=== PATIENT | male | born 1955 | race Caucasian/White ===

== ENCOUNTER 2016-05-11 14:41 | Emergency (ER) | payer OTHER, MEDICARE ==
[~2016-05-11] VITALS: Ht 180.3 cm; Wt 99.8 kg
[~2016-05-11 14:41] MED LIST: ALLOPURINOL300 M1 PO; ASPIRIN EC81 M1 PO; ATORVASTATIN CA40 MG PO; BENICAR40 M1 PO; ENALAPRIL10 MG PO; ENALAPRIL20 MG PO; FOLIC ACID1 M1 PO; INDOMETHACIN50 M1 PO; JANUMET 1000 MG1 TAB PO; JANUMET XR 10001 TE1 PO; LOPRESSOR50 MG PO; LOVAZA1 GM PO; OXYCONTIN40 M1 PO; PLAVIX 75MG TAB75 MG PO; RANEXA500 M1 PO; ROXICODONE30 M1 PO; TIZANIDINE HCL4 M1 PO; TRILIPIX135 M1 PO; ZETIA10 MG PO
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
[2016-05-11] MEDS ORDERED: CYANOCOBAL1000 MCG/2 IM (15:10)
[2016-05-11] MEDS ORDERED: AMLODIPINE BESYL5 M1 PO (15:11)
[2016-05-11 15:14] LABS: ABSOLUTE BASOPHIL COUNT 0 /CUMM (0.0-0.2); ABSOLUTE EOSINOPHIL COUNT 0.1 /CUMM (0.0-0.7); ABSOLUTE GRANULOCYTE CT 10.8 /CUMM (1.4-6.5); ABSOLUTE LYMPH COUNT 0.7 /CUMM (1.2-3.4); ABSOLUTE MONOCYTE COUNT 0.7 /CUMM (0.10-0.60); BASOPHIL % 0.2 % (0.0-2.0); EOSINOPHIL % 0.4 % (0-5); HEMATOCRIT 39.3 % (42-52); MEAN CORPUSCULAR HGB CONC 34.3 G/DL (33.0-37.0); MEAN CORPUSCULAR VOLUME 87.3 FL (80.0-94.0); MEAN PLATELET VOLUME 7.5 FL (7.4-10.4); PLATELET COUNT 368 /CUMM (130-400); RBC DISTRIBUTION WIDTH 13.3 % (11.5-14.5); WHITE BLOOD CELL COUNT 12.2 /CUMM (4.8-10.8)
--- NOTE | 2016-05-11 15:27 | RADIOLOGY REPORT ---
EXAMINATION: XR PORTABLE CHEST CLINICAL INFORMATION: Chest pain. COMPARISON: Multiple chest x-rays most recent prior dated 09/14/2014 TECHNIQUE: Portable AP view of the chest was obtained. FINDINGS: Status post median sternotomy and CABG. Mild cardiomegaly. Lungs are clear. Visualized bony thorax is intact. IMPRESSION: No acute pulmonary disease.
[2016-05-11 15:36] LABS: GRANULOCYTE % 88.3 % (42.2-75.2)
[2016-05-11 16:23] VITALS: BP 192/91
== END 2016-05-11 16:34 | disposition short-term general hospital (02) ==
LOC: ERH 14:41
PROVIDERS: Emergency Medicine
DX: R07.9 Chest pain, unspecified (principal); R94.31 Abnormal electrocardiogram [ECG] [EKG]; R77.8 Other specified abnormalities of plasma proteins; E11.9 Type 2 diabetes mellitus without complications; Z79.84 Long term (current) use of oral hypoglycemic drugs
CPT/HCPCS: 93005; 93010; 96374; 96375; 99291; J3490

== ENCOUNTER 2016-05-26 18:22 | Emergency (ER) | payer OTHER, MEDICARE ==
[~2016-05-26] VITALS: Ht 180.3 cm; Wt 98.0 kg
[~2016-05-26 18:22] MED LIST changes: +AMLODIPINE BESYL5 M1 PO; +CYANOCOBAL1000 MCG/2 IM
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
[2016-05-26 18:45] LABS: ABSOLUTE BASOPHIL COUNT 0.1 /CUMM (0.0-0.2); ABSOLUTE EOSINOPHIL COUNT 0 /CUMM (0.0-0.7); ABSOLUTE GRANULOCYTE CT 10.7 /CUMM (1.4-6.5); ABSOLUTE LYMPH COUNT 0.8 /CUMM (1.2-3.4); ABSOLUTE MONOCYTE COUNT 0.7 /CUMM (0.10-0.60); BASOPHIL % 0.8 % (0.0-2.0); EOSINOPHIL % 0.4 % (0-5); GRANULOCYTE % 86.5 % (42.2-75.2); HEMATOCRIT 33.4 % (42-52); MEAN CORPUSCULAR HGB 28.8 PG (27.0-31.0); MEAN CORPUSCULAR HGB CONC 33.1 G/DL (33.0-37.0); MEAN CORPUSCULAR VOLUME 87.1 FL (80.0-94.0); MEAN PLATELET VOLUME 7.6 FL (7.4-10.4); RBC DISTRIBUTION WIDTH 14.5 % (11.5-14.5); RED BLOOD CELL CT 3.84 /CUMM (4.70-6.10)
[2016-05-26 18:58] LABS: PT 19.6 SEC (9.4-12.5); PTT 36 SEC (25-37)
--- NOTE | 2016-05-26 19:01 | RADIOLOGY REPORT ---
EXAMINATION: XR PORTABLE CHEST CLINICAL INFORMATION: Chest pain. COMPARISON: Chest radiography 05/11/2016. TECHNIQUE: Portable AP view of the chest was obtained. FINDINGS: Sternotomy wires and mediastinal surgical clips redemonstrated. The lungs are well expanded. No new consolidation, overt pulmonary edema, pleural effusion, or pneumothorax. Interstitial markings have not significantly changed compared to prior exam. Mediastinal contours are unchanged. No acute osseous abnormalities. Right humeral anchoring screw. IMPRESSION: No acute pulmonary pathology demonstrated. No significant interval change compared to prior chest radiography 05/11/2016.
[2016-05-26] MEDS ORDERED: ELIQUIS5 M1 PO (19:12)
[2016-05-26] MEDS ORDERED: CARVEDILOL6.25 M1 PO (19:13)
[2016-05-26] MEDS ORDERED: EFFIENT10 M1 PO (19:13)
[2016-05-26] MEDS ORDERED: AMBIEN5 M1 PO (19:14)
[2016-05-26] MEDS ORDERED: SENNA LAXATIVE1 EACH PO (19:14)
[2016-05-26] MEDS ORDERED: LIPITOR80 M1 PO (19:15)
[2016-05-26 19:18] LABS: WHITE BLOOD CELL COUNT 12.4 /CUMM (4.8-10.8)
[2016-05-26] MEDS ORDERED: JANUMET 50-1,01 EACH PO (19:18)
[2016-05-26] MEDS ORDERED: FISH OIL 1,0001 EAC3 PO (19:18)
[2016-05-26 19:19] LABS: PLATELET COUNT 613 /CUMM (130-400)
[2016-05-26 19:30] VITALS: BP 180/103
== END 2016-05-26 19:53 | disposition short-term general hospital (02) ==
LOC: ERH 18:22
PROVIDERS: Emergency Medicine
DX: I24.9 Acute ischemic heart disease, unspecified (principal); I10 Essential (primary) hypertension
CPT/HCPCS: 93005; 93010; 96374; 96375; 99291

== ENCOUNTER 2016-06-18 10:19 | Emergency (ER) | payer OTHER, MEDICARE ==
[~2016-06-18] VITALS: Ht 180.3 cm; Wt 93.4 kg
[~2016-06-18 10:19] MED LIST changes: +AMBIEN5 M1 PO; +CARVEDILOL6.25 M1 PO; +EFFIENT10 M1 PO; +ELIQUIS5 M1 PO; +FISH OIL 1,0001 EAC3 PO; +JANUMET 50-1,01 EACH PO; +LIPITOR80 M1 PO; +SENNA LAXATIVE1 EACH PO
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
[2016-06-18 13:20] LABS: ABSOLUTE BASOPHIL COUNT 0.2 /CUMM (0.0-0.2); ABSOLUTE EOSINOPHIL COUNT 0.1 /CUMM (0.0-0.7); ABSOLUTE GRANULOCYTE CT 5.9 /CUMM (1.4-6.5); ABSOLUTE LYMPH COUNT 0.9 /CUMM (1.2-3.4); ABSOLUTE MONOCYTE COUNT 0.5 /CUMM (0.10-0.60); BASOPHIL % 2.1 % (0.0-2.0); EOSINOPHIL % 0.9 % (0-5); HEMATOCRIT 25.3 % (42-52); MEAN CORPUSCULAR HGB 28.2 PG (27.0-31.0); MEAN CORPUSCULAR HGB CONC 33.5 G/DL (33.0-37.0); MEAN CORPUSCULAR VOLUME 84.2 FL (80.0-94.0); MEAN PLATELET VOLUME 7.8 FL (7.4-10.4); PLATELET COUNT 280 /CUMM (130-400); RBC DISTRIBUTION WIDTH 15.9 % (11.5-14.5); RED BLOOD CELL CT 3.01 /CUMM (4.70-6.10); WHITE BLOOD CELL COUNT 7.4 /CUMM (4.8-10.8)
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
[2016-06-18] MEDS ORDERED: AMLODIPINE BESY10 M1 PO (15:27)
[2016-06-18] MEDS ORDERED: FAMOTIDINE20 M1 PO (15:27)
[2016-06-18] MEDS ORDERED: HEPARIN 101 UNIT/1 M AD (15:32)
[2016-06-18] MEDS ORDERED: HEPARIN AD (15:36)
[2016-06-18] MEDS ORDERED: POLYETHYLENE GL17 GM PO (15:38)
[2016-06-18] MEDS ORDERED: OXACILLIN2 GM/50 M1 IV (15:41)
[2016-06-18] MEDS ORDERED: SODIUM CHLORIDE50 M2 AD (15:43)
[2016-06-18] MEDS ORDERED: CARVEDILOL25 M1 PO (15:45)
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
[2016-06-18 18:36] VITALS: BP 123/59
--- NOTE | 2016-06-18 19:03 | RADIOLOGY REPORT ---
EXAMINATION: XR PORTABLE CHEST CLINICAL INFORMATION: 61-year-old male patient with shortness of breath. COMPARISON: Baseline exam done 09/14/2014. Most recent x-ray done 05/11/2016. TECHNIQUE: Portable AP portable semierect view of the chest was obtained. FINDINGS: The heart remains enlarged. Sternotomy wires are intact. This exam now shows early interstitial edema. Trace pleural effusions may be present. IMPRESSION: Cardiomegaly. Early interstitial edema with trace pleural effusion consistent with CHF.
--- NOTE | 2016-06-18 19:40 | ECHOCARDIOGRAM REPORT ---
DAYSI SILVERMAN Age: 61 : 1955 Gender: M Exam Date: 06/18/2016 17:09 Exam Location: ER Ht (in): 71 Wt (lb): 206 BSA: 2.18 BP: 108 / 63 Ordering Physician: MARSHALL MOSQUEDA, Referring Physician: Darrick Collazo MD Technologist: Bronwyn Bowen MILVIA Room Number: [id number] Indications: ARRHYTHMIAS Rhythm: Technical Quality: poor FINDINGS Left Ventricle Normal size left ventricle. Left ventricular wall thickness mildly increased. Normal left ventricular ejection fraction estimated at 55-60%. Posterior basal and basal septum appear hypokinetic and scarred. Right Ventricle Normal right ventricular size and function. Right Atrium Normal right atrial size. There is a thickened structure in the right AV groove seen in the subcostal view with contrast material contained within that appears to be an aneurysmal structure in and related to the right coronary artery. There is a similar looking structure in the apical view seemingly traversing the tricuspid valve which I believe is external to the right atrium and right ventricle . An abnormal pick line may be considered if it placed beyond the right atrium. Left Atrium Mild left atrial dilatation. Mitral Valve Structurally normal mitral valve. Moderate mitral regurgitation. Aortic Valve Aortic sclerosis. Trace aortic regurgitation. Tricuspid Valve Structurally normal tricuspid valve. Elty-hi-[id number] tricuspid regurgitation. Right ventricular systolic pressure estimated to be at upper limits of normal at 30 mmHg. Pulmonic Valve Pulmonic valve not well visualized, grossly normal. Pericardium In the subcostal view there is thickening and echogenic material inferior to the right ventricle Great Vessels Normal size aortic root. CONCLUSIONS Markedly abnormal Echo study. See above for details. 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 Normal overall left ventricular systolic function with segmental abnormality in the posterior basal and basal septal areas.Dedicated Cardiac MRI is suggested. Darrick Collazo M.D. (Electronically Signed) Final Date: 18 June 2016 19:39 MEASUREMENTS (Male / Female) Normal Values 2D ECHO LV Diastolic Diameter PLAX 5.3 cm 4.2 - 5.9 / 3.9 - 5.3 cm LV Systolic Diameter PLAX 3.9 cm 2.1 - 4.0 cm LV Fractional Shortening PLAX 26.4 % 25 - 46 % LV Ejection Fraction 2D Teich 51.3 % IVS Diastolic Thickness 1.3 cm LVPW Diastolic Thickness 1.3 cm LV Relative Wall Thickness 0.5 LVOT Diameter 2.0 cm Aortic Root Diameter 3.1 cm LA Systolic Diameter LX 5.4 cm 3.0 - 4.0 / 2.7 - 3.8 cm LA Volume 62.0 cm 18 - 58 / 22 - 52 cm Ascending Aorta Diameter 3.5 cm DOPPLER AV Peak Velocity 121.0 cm/s AV Peak Gradient 5.9 mmHg AV Mean Velocity 80.2 cm/s AV Mean Gradient 3.0 mmHg AV Velocity Time Integral 27.0 cm LVOT Peak Velocity 114.0 cm/s LVOT Peak Gradient 5.2 mmHg LVOT Mean Velocity 69.8 cm/s LVOT Mean Gradient 2.0 mmHg LVOT Velocity Time Integral 25.7 cm LVOT Stroke Volume 80.7 cm AV Area Cont Eq vti 3.0 cm AV Area Cont Eq pk 3.0 cm MV Peak Velocity 145.0 cm/s MV Peak Gradient 8.4 mmHg MV Mean Velocity 60.0 cm/s MV Mean Gradient 2.0 mmHg Mitral E Point Velocity 128.0 cm/s MV PHT Velocity 147.7 cm/s MV Deceleration [place] 559.2 cm/s MV Pressure Half Time 79.2 ms MV Area PHT 2.8 cm MV Deceleration Time 190.0 ms TR Peak Velocity 228.0 cm/s TR Peak Gradient 20.8 mmHg Right Atrial Pressure 10.0 mmHg Pulmonary Artery Systolic Pressu 30.8 mmHg Right Ventricular Systolic Press 30.8 mmHg PV Peak Velocity 105.0 cm/s PV Peak Gradient 4.4 mmHg PV Mean Velocity 69.9 cm/s PV Mean Gradient 2.0 mmHg PV Velocity Time Integral 27.3 cm LV E' Lateral Velocity 9.4 cm/s Mitral E to LV E' Lateral Ratio 13.7 LV E' Septal Velocity 4.5 cm/s Mitral E to LV E' Septal Ratio 28.6
== END 2016-06-18 20:01 | disposition short-term general hospital (02) ==
LOC: ERH 10:19
PROVIDERS: Emergency Medicine
DX: R00.1 Bradycardia, unspecified (principal); D64.9 Anemia, unspecified; R09.89 Other specified symptoms and signs involving the circulatory and respiratory systems; I95.9 Hypotension, unspecified; R53.1 Weakness; E11.9 Type 2 diabetes mellitus without complications
CPT/HCPCS: 87040; 93005; 93010; 96361; 96374; C8929; J1940; Q9957

== ENCOUNTER 2016-07-19 17:02 | Emergency (ER) | payer OTHER, MEDICARE ==
[~2016-07-19] VITALS: Ht 177.8 cm; Wt 91.2 kg
[~2016-07-19 17:02] MED LIST changes: +AMLODIPINE BESY10 M1 PO; +CARVEDILOL25 M1 PO; +FAMOTIDINE20 M1 PO; +HEPARIN 101 UNIT/1 M AD; +HEPARIN AD; +OXACILLIN2 GM/50 M1 IV; +POLYETHYLENE GL17 GM PO; +SODIUM CHLORIDE50 M2 AD
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
[2016-07-19 17:48] LABS: ABSOLUTE BASOPHIL COUNT 0 /CUMM (0.0-0.2); ABSOLUTE EOSINOPHIL COUNT 0.1 /CUMM (0.0-0.7); ABSOLUTE MONOCYTE COUNT 0.2 /CUMM (0.10-0.60); BASOPHIL % 0 % (0.0-2.0); EOSINOPHIL % 0.8 % (0-5); HEMATOCRIT 29.8 % (42-52); MEAN CORPUSCULAR HGB CONC 33.7 G/DL (33.0-37.0); MEAN CORPUSCULAR VOLUME 83.3 FL (80.0-94.0); PLATELET COUNT 623 /CUMM (130-400); RBC DISTRIBUTION WIDTH 15.7 % (11.5-14.5); RED BLOOD CELL CT 3.58 /CUMM (4.70-6.10); WHITE BLOOD CELL COUNT 11.3 /CUMM (4.8-10.8)
[2016-07-19 17:59] LABS: PT 14.2 SEC (9.4-12.5); PTT 26 SEC (25-37)
[2016-07-19 18:08] LABS: GRANULOCYTE % 88.7 % (42.2-75.2)
--- NOTE | 2016-07-19 18:17 | RADIOLOGY REPORT ---
EXAMINATION: XR PORTABLE CHEST CLINICAL INFORMATION: Shortness of breath. COMPARISON: Chest x-ray 06/18/2016 TECHNIQUE: Portable AP view of the chest was obtained. 5:45 PM FINDINGS: Lung volume low. This causes prominent/crowding of the bronchovascular markings. Status post median sternotomy. Pacemaker device over the left lung base. No focal consolidation. No large pleural effusion. Left-sided PICC line catheter tip projects over the aortic arch. Catheter tip projects over the left superior mediastinum. This catheter has been pulled back since prior chest x-ray when the catheter tip was at the cavoatrial junction. IMPRESSION: 1. Low lung volume which is causing prominent/crowding of the bronchovascular markings. No dense focal consolidation or large pleural effusion. 2. Left-sided PICC line catheter has been pulled back. Catheter tip now projecting over the aortic arch at the left superior mediastinum 3. Pacemaker device seen over the left chest.
[2016-07-19] MEDS ORDERED: CLOPIDOGREL75 M1 PO (18:42)
[2016-07-19] MEDS ORDERED: FENOFIBRATE160 M1 PO (18:43)
[2016-07-19] MEDS ORDERED: FERROUS SULFAT325 M3 PO (18:43)
[2016-07-19] MEDS ORDERED: OXYCODONE HCL5 M1 PO (18:44)
[2016-07-19] MEDS ORDERED: METOPROLOL SUCC25 M1 PO (18:44)
[2016-07-19 23:17] VITALS: BP 134/78
== END 2016-07-19 23:26 | disposition short-term general hospital (02) ==
LOC: ERH 17:02
PROVIDERS: Physician Assistant
DX: I21.4 Non-ST elevation (NSTEMI) myocardial infarction (principal); R79.89 Other specified abnormal findings of blood chemistry; I10 Essential (primary) hypertension; E11.9 Type 2 diabetes mellitus without complications; R06.02 Shortness of breath; R05 Cough
CPT/HCPCS: 1263; 93005; 93010; 96374; 96376; 99291; J3490

== ENCOUNTER 2017-08-04 12:23 | Inpatient (IN) | payer OTHER, MEDICARE ==
[~2017-08-04] VITALS: Ht 180.3 cm; Wt 87.6 kg
[~2017-08-04 12:23] MED LIST changes: +CLOPIDOGREL75 M1 PO; +FENOFIBRATE134 M1 PO; +FERROUS SULFAT325 M3 PO; +METOPROLOL SUCC25 M1 PO; +OXYCODONE HCL5 M1 PO
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
[2017-08-04] MEDS ORDERED: ENTRESTO 49 MG1 EACH PO (13:18)
[2017-08-04] MEDS ORDERED: LASIX40 M1 PO ×2 (13:20)
[2017-08-04] MEDS ORDERED: INDOMETHACIN50 M1 PO (13:22)
[2017-08-04] MEDS ORDERED: METOPROLOL SUCC50 M2 PO (13:23)
[2017-08-04] MEDS ORDERED: OXYCONTIN40 M1 PO (13:23)
[2017-08-04] MEDS ORDERED: OXYCODONE HCL30 M1 PO (13:24)
[2017-08-04] MEDS ORDERED: PRISTIQ ER25 MG PO (13:26)
[2017-08-04] MEDS ORDERED: AMOXICILLIN500 M2 PO (13:26)
[2017-08-04 13:36] LABS: ABSOLUTE BASOPHIL COUNT 0 /CUMM (0.0-0.2); ABSOLUTE EOSINOPHIL COUNT 0.1 /CUMM (0.0-0.7); ABSOLUTE GRANULOCYTE CT 5.3 /CUMM (1.4-6.5); ABSOLUTE LYMPH COUNT 0.8 /CUMM (1.2-3.4); ABSOLUTE MONOCYTE COUNT 0.4 /CUMM (0.10-0.60); BASOPHIL % 0.2 % (0.0-2.0); EOSINOPHIL % 2.2 % (0-5); GRANULOCYTE % 80.4 % (42.2-75.2); HEMATOCRIT 32.1 % (42-52); MEAN CORPUSCULAR HGB CONC 33.4 G/DL (33.0-37.0); MEAN CORPUSCULAR VOLUME 89.7 FL (80.0-94.0); PLATELET COUNT 233 /CUMM (130-400); RBC DISTRIBUTION WIDTH 16.8 % (11.5-14.5); RED BLOOD CELL CT 3.58 /CUMM (4.70-6.10); WHITE BLOOD CELL COUNT 6.6 /CUMM (4.8-10.8)
--- NOTE | 2017-08-04 13:36 | RADIOLOGY REPORT ---
EXAMINATION: XR PORTABLE CHEST CLINICAL INFORMATION: Shortness of breath. COMPARISON: Prior chest radiographs, most recently 08/01/2017. TECHNIQUE: Portable frontal view of the chest was obtained. FINDINGS: The heart, great vessels, pulmonary vasculature and mediastinum are stable. The heart size is at least top normal. There has been a prior coronary valvuloplasty. Pacemaker leads are unchanged. There is mild patchy airspace disease in the right base and left upper lobe. There are small bilateral pleural effusions, right greater than left. No pneumothorax is seen. There is no acute osseous abnormality. An orthopedic anchor is seen applied to the right humeral head. IMPRESSION: 1. There is mild patchy airspace disease in the right base and left upper lobe. 2. There are small bilateral pleural effusions.
[2017-08-04 13:44] LABS: PT 14.7 SEC (9.4-12.5)
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
[2017-08-04 16:24] VITALS: BP 136/100
--- NOTE | 2017-08-04 16:59 | Admission Certification ---
Admission Certification Certification Statement - As attending physician, I certify that at the time of - admission, based on clinical presentation, severity of - symptoms, need for further diagnostic testing and - therapeutic interventions, and risk of adverse outcomes - without in-hospital treatment, in my clinical assessment, - this patient requires an acute hospital stay for a minimum - of two nights or longer. I have also considered psychsocial - factors such as support system, advanced age, financial - issues, cognitive issues, and failed out-patient treatments, - past re-admission history, safety of patient, and lack of - compliance as applicable. Specific rationale supporting this admission is: Inpatient admission is required for management of his congestive heart failure
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
[2017-08-04 22:45] VITALS: BP 128/78
[2017-08-05 02:42] LABS: ABSOLUTE BASOPHIL COUNT 0 /CUMM (0.0-0.2); ABSOLUTE EOSINOPHIL COUNT 0.1 /CUMM (0.0-0.7); ABSOLUTE GRANULOCYTE CT 4.9 /CUMM (1.4-6.5); ABSOLUTE MONOCYTE COUNT 0.5 /CUMM (0.10-0.60); BASOPHIL % 0.4 % (0.0-2.0); EOSINOPHIL % 2.2 % (0-5); GRANULOCYTE % 74.6 % (42.2-75.2); HEMATOCRIT 33.1 % (42-52); MEAN CORPUSCULAR HGB 29.8 PG (27.0-31.0); MEAN CORPUSCULAR HGB CONC 33.2 G/DL (33.0-37.0); MEAN CORPUSCULAR VOLUME 89.8 FL (80.0-94.0); MEAN PLATELET VOLUME 9.9 FL (7.4-10.4); PLATELET COUNT 241 /CUMM (130-400); RED BLOOD CELL CT 3.68 /CUMM (4.70-6.10); WHITE BLOOD CELL COUNT 6.6 /CUMM (4.8-10.8)
[2017-08-05 06:53] VITALS: BP 122/78
--- NOTE | 2017-08-05 08:15 | PN- Housestaff ---
Ghada PERALES,Prateek 08/05/17 0815: Subjective Follow-up For: CHF exacerbation exertional dyspnea SOLA Tele-Events Since Last Visit: paced rhythm, HR 60, no events Subjective: dyspnea significantly improved, >3L diuresis on IV lasix, off oxygen, lower extremity edema improving Review of Systems Constitutional: Reports: see HPI. Objective Last 24 Hrs of Vital Signs/I&O Vital Signs Date Time Temp Pulse Resp B/P B/P Pulse O2 O2 Flow FiO2 Mean Ox Delivery Rate 08/05 1404 97.1 68 18 116/60 94 Room Air 08/05 0825 124/64 08/05 0653 97.5 61 20 122/78 98 Room Air 08/05 0000 Nasal 2.0L Cannula 08/04 2245 97.7 78 24 128/78 97 08/04 2035 Nasal 2.0L Cannula 08/04 1624 98.5 71 20 136/100 95 08/04 1617 97 Room Air Intake & Output 08/05 1600 08/05 0800 08/05 0000 Intake Total 420 150 100 Output Total 900 1350 1050 Balance -480 -1200 -950 Intake, IV 20 Intake, Oral 400 150 100 Output, Urine 900 1350 1050 Patient 89.386 kg Weight Weight Bed scale Measurement Method Physical Exam General Appearance: Alert, Oriented X3, Cooperative, No Acute Distress, on room air Cardiovascular: Regular Rate, Normal S1, Normal S2, No Murmurs, LCW pacer Lungs: diminished bibasilarly Abdomen: Normal Bowel Sounds, Soft, No Tenderness, No Masses Extremities: No Clubbing, No Cyanosis, Normal Pulses, 1+ bilateral lower extremity pitting edema Current Medications: Current Medications Sig/Zee Start time Last Medication Dose Route Stop Time Status Admin Acetaminophen 650 MG Q6P PRN 08/04 1545 AC PO Aspirin Buffered 81 MG QAM 08/05 09 AC 08/05 PO 0825 Atorvastatin Calcium 80 MG QPM 08/04 2099 AC 08/04 PO 2043 Clopidogrel Bisulfate 75 MG DAILY 08/05 899 AC 08/05 PO 0824 Famotidine 20 MG BID 08/04 2099 AC 08/05 PO 0825 Fenofibrate 145 MG DAILY 08/05 09 AC 08/05 PO 0824 Ferrous Sulfate 325 MG TID 08/04 2099 AC 08/05 PO 1302 Furosemide 40 MG 0800 & 1700 08/04 1700 AC 08/05 IV 0824 Furosemide 0 .STK-MED ONE 08/04 1605 DC IV Heparin Sodium 5,000 UNIT Q8 08/04 2200 AC 08/05 (Porcine) SC 1302 Magnesium Oxide 800 MG ONE ONE 08/05 0900 DC 08/05 PO 08/05 0901 0935 Melatonin 5 MG AT BEDTIME 08/04 2130 AC 08/04 PO 2120 Metoprolol Succinate 75 MG DAILY 08/05 0900 AC 08/05 PO 0825 Non-Formulary 0 SEE ADMIN CRITERIA 08/05 1545 UNVr Medication ANY Non-Formulary 0 SEE ADMIN CRITERIA 08/04 1545 DC Medication ANY Oxycodone HCl 40 MG Q12 08/04 2100 AC 08/05 PO 0829 Oxycodone HCl 30 MG Q4P PRN 08/04 1545 AC 08/05 PO 1133 Oxycodone HCl 40 MG Q12H 08/04 1545 DC PO Senna/Docusate Sodium 1 TAB QPM PRN 08/04 1545 AC 08/05 PO 0823 Last 24 Hrs of Lab/Adalberto Results Last 24 Hrs of Labs/Mics: Laboratory Tests 08/05/17 0210: Anion Gap 15, Estimated GFR 41 L, BUN/Creatinine Ratio 22.9, Magnesium 1.4 L, Troponin I 0.04, CBC w Diff NO MAN DIFF REQ, RBC 3.68 L, MCV 89.8, MCH 29.8, MCHC 33.2, RDW 17.0 H, MPV 9.9, Gran % 74.6, Lymphocytes % 15.9 L, Monocytes % 6.9, Eosinophils % 2.2, Basophils % 0.4, Absolute Granulocytes 4.9, Absolute Lymphocytes 1.0 L, Absolute Monocytes 0.5, Absolute Eosinophils 0.1, Absolute Basophils 0 08/04/171954: Troponin I 0.03 Assessment/Plan Assessment: 62 year old man with CAD s/p CABG with stents x 8, HTN, HLD, DM, HFrEF, h/o cardiac arrest, presented with significant exertional dyspnea and new continuous supplemental oxygen requirement. Acute decompensated congestive heart failure: HFrEF 2L supplemental oxygen requirement-SpO2 94% on 2L NC Given 40mg IV lasix in the ED, started 40mg iv bid on the floor >-3L fluid balance in 48 hours, now on room air and less dyspneic Strict I/O's, daily weights BNP elevated to 60,000, clinically hypervolemic Serial troponins negative for acute ischemic EKG changes Cardiology consulted Recent echocardiogram as an outpatient LVEF 30% Entresto on hold Creatinine improving on diuretics Chest x-ray patchy airspace disease and small bilateral pleural effusions Will need outpatient follow up at the CHF clinic Acute kidney injury: Creatinine 1.9 on presentation Previously normal baseline 2 months ago Possibly cardiorenal syndrome as renal function is improving with diuresis Continue diuretics for now Trend renal function Avoid nephrotoxic agents, no NSAIDs Nephrology consultation placed CAD status post CABG/multiple cardiac stents Continue aspirin, plavix, statin, and metoprolol Entresto held for SOLA DM: Accuchecks TIDAC/HS, sugars have been in 100s since admission Novolog sliding scale insulin, coverage starting blood sugar > 150 HTN: Continue beta yadiel HLD: Continue statin therapy Gout: Allopurinol and indomethacin held for SOLA Anxiety: Continue pristiq 25 mg po daily Heart healthy diet DVT ppx-heparin Full code Problem List: 1. Acute on chronic systolic CHF (congestive heart failure) 2. Dyspnea on exertion 3. Elevated brain natriuretic peptide (BNP) level Pain Ratin Pain Location: n/a Pain Goal: Pain 4 or less Pain Plan: prn Tomorrow's Labs & Rationales: Mathew Garcia MD 08/05/17 1036: Attending MD Review Statement Attending Statement Attending MD Statement: examined this patient, discuss w/resident/PA/COMMUNITY SERVICES OFFICER, agreed w/resident/PA/COMMUNITY SERVICES OFFICER, reviewed EMR data (avail) Attending Assessment/Plan: 62M PMH hypertension, coronary artery disease status post CABG, hyperlipidemia, gout, peripheral neuropathy, carpal tunnel and diabetes presenting with 3 days of shortness of breath, malaise, fatigue, and orthopnea. For several weeks his breathing has been slowly deteriorating, but it has worsened acutely in the past 3 days. He is unable to sleep in a bed and becomes SOB when lying flat. 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 He has no recent events such as chest pain, trauma, palpitations, or infection. He is improved today. He had had 2.4L of diuresis since yesterday. More energy , breathing better. 1. Acute on chronic systolic CHF 2. SOLA Plan - Continue on telemetry - Continue Lasix 40mg IV BID - I/O, daily weights - Follow cardiology recommendations - Continue home medications excluding Entresto - DVT PPx - Anticipated discharge tomorrow or Saturday pending clinical improvement. CHF clinic on discharge. Monitor creatinine, no further CBCs.
--- NOTE | 2017-08-05 11:31 | PN- Cardiology ---
Subjective Subjective: Patient continues to report shortness of breath although has noted progressive shortness of breath for some time. Denies any chest pain. Objective Vital Signs and I&Os Vital Signs Date Time Temp Pulse Resp B/P B/P Pulse O2 O2 Flow FiO2 Mean Ox Delivery Rate 08/05 0825 124/64 08/05 0653 97.5 61 20 122/78 98 Room Air 08/05 0000 Nasal 2.0L Cannula 08/04 2245 97.7 78 24 128/78 97 08/04 2035 Nasal 2.0L Cannula 08/04 1624 98.5 71 20 136/100 95 08/04 1617 97 Room Air 08/04 1529 98.2 67 18 155/85 97 Room Air 08/04 1227 97.4 78 20 134/86 96 Room Air Intake & Output 08/05 1600 08/05 0800 08/05 0000 08/04 1600 08/04 0000 Intake Total 150 100 0 Output Total 1350 1050 500 Balance -1200 -950 -500 Intake, Oral 150 100 0 Output, Urine 1350 1050 500 Patient 197 lb 200 lb Weight Weight Bed scale Reported by Patient Measurement Method Physical Exam: General: no apparent distress. Alert. Eyes: No obvious scleral icterus. HEENT: No jugular venous distention or abnormal jugular venous pulsations. Cardiovascular: Normal intensity S1/S2. Pacemaker noted Respiratory: Mildly decreased air entry at the bases Abdomen: Soft, nontender with no guarding or rebound tenderness. Musculoskeletal: No clubbing or cyanosis noted; 1+ lower extremity edema Skin: warm Lymph: No gross lymphadenopathy. Current Medications: Current Medications Sig/Zee Start time Last Medication Dose Route Stop Time Status Admin Acetaminophen 650 MG Q6P PRN 08/04 1545 AC PO Aspirin Buffered 81 MG QAM 08/05 09 AC 08/05 PO 08 Atorvastatin Calcium 80 MG QPM 08/04 2099 AC 08/04 PO 2043 Clopidogrel Bisulfate 75 MG DAILY 08/05 899 AC 08/05 PO 0824 Famotidine 20 MG BID 08/04 2099 AC 08/05 PO 0825 Fenofibrate 145 MG DAILY 08/05 09 AC 08/05 PO 0824 Ferrous Sulfate 325 MG TID 08/04 2099 AC 08/05 PO 0824 Furosemide 40 MG 0800 & 1700 08/04 1700 AC 08/05 IV 0824 Furosemide 0 .STK-MED ONE 08/04 1605 DC IV Furosemide 40 MG ONCE ONE 08/04 1400 DC 08/04 IV 08/04 1401 1602 Heparin Sodium 5,000 UNIT Q8 08/04 2200 AC 08/05 (Porcine) SC 0535 Magnesium Oxide 800 MG ONE ONE 08/05 0900 DC 08/05 PO 08/05 0901 0935 Melatonin 5 MG AT BEDTIME 08/04 2130 AC 08/04 PO 2120 Metoprolol Succinate 75 MG DAILY 08/05 09 AC 08/05 PO 0825 Non-Formulary 0 SEE ADMIN CRITERIA 08/04 1545 DC Medication ANY Oxycodone HCl 40 MG Q12 08/04 2100 AC 08/05 PO 0829 Oxycodone HCl 30 MG Q4P PRN 08/04 1545 AC 08/05 PO 0222 Oxycodone HCl 40 MG Q12H 08/04 1545 DC PO Senna/Docusate Sodium 1 TAB QPM PRN 08/04 1545 AC 08/05 PO 0823 Results Last 48 Hrs of Labs/Mics: Laboratory Tests 08/05/17 0210: Anion Gap 15, Estimated GFR 41 L, BUN/Creatinine Ratio 22.9, Magnesium 1.4 L, Troponin I 0.04, CBC w Diff NO MAN DIFF REQ, RBC 3.68 L, MCV 89.8, MCH 29.8, MCHC 33.2, RDW 17.0 H, MPV 9.9, Gran % 74.6, Lymphocytes % 15.9 L, Monocytes % 6.9, Eosinophils % 2.2, Basophils % 0.4, Absolute Granulocytes 4.9, Absolute Lymphocytes 1.0 L, Absolute Monocytes 0.5, Absolute Eosinophils 0.1, Absolute Basophils 0 08/04/17 1955: Troponin I 0.03 08/04/17 1353: Anion Gap 13, Estimated GFR 36 L, BUN/Creatinine Ratio 19.5, Glucose 101 H, Calcium 9.1, Total Bilirubin 0.9, AST 30, ALT 36, Alkaline Phosphatase 44, Troponin I 0.03, Rps-T-Kdlgshdoiey Pept 82698 H, Total Protein 6.9, Albumin 4.0 , Globulin 2.9, Albumin/Globulin Ratio 1.4 08/04/17 1315: PT 14.7 H, INR 1.34 H, CBC w Diff NO MAN DIFF REQ, RBC 3.58 L, MCV 89.7, MCH 30.0, MCHC 33.4, RDW 16.8 H, MPV 10.0, Gran % 80.4 H, Lymphocytes % 11.8 L, Monocytes % 5.4, Eosinophils % 2.2, Basophils % 0.2, Absolute Granulocytes 5.3, Absolute Lymphocytes 0.8 L, Absolute Monocytes 0.4, Absolute Eosinophils 0.1, Absolute Basophils 0 Recent Imaging Studies: Telemetry tracings were personally reviewed and showed paced rhythm Assessment/Plan Assessment/Plan 1. Acute on chronic systolic heart failure with recent outpatient echocardiogram showing ejection fraction of approximately 30% 2. 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 Acute renal insufficiency; ?cardiorenal 4. Peripheral vascular disease 5. Diabetes mellitus 6. Hypertension/hyperlipidemia Patient has a very complicated cardiac history as described above. His creatinine has improved slightly and as he is still short of breath would continue on the IV Lasix. Consider nephrology consultation as already recommended by Dr. Fernandez. Agree with holding his Entresto for now. The patient did have a recent echocardiogram in our office with ejection fraction of 30% which is grossly unchanged and repeat inpatient echocardiogram is not currently indicated. Lino Gar MD [facility] Continue telemetry? Yes
[2017-08-05 14:04] VITALS: BP 116/60
[2017-08-05 22:12] VITALS: BP 116/74
[2017-08-06 07:05] VITALS: BP 124/68
--- NOTE | 2017-08-06 07:18 | PN- Housestaff ---
See Addendum Subjective Follow-up For: CHF exacerbation dyspnea SOLA hypomagnesia Tele-Events Since Last Visit: paced no events Subjective: feeling much better, dyspnea is significantly improved, on room air Review of Systems Constitutional: Reports: see HPI. Objective Last 24 Hrs of Vital Signs/I&O Vital Signs Date Time Temp Pulse Resp B/P B/P Pulse O2 O2 Flow FiO2 Mean Ox Delivery Rate 08/06 0853 65 124/68 08/06 0705 97.5 65 12 124/68 96 Room Air 08/05 2212 97.6 62 16 116/74 98 08/05 1404 97.1 68 18 116/60 94 Room Air Intake & Output 08/06 1600 08/06 0800 08/06 0000 Intake Total 280 300 Output Total 1150 2700 Balance -870 -2400 Intake, Oral 280 300 Output, Urine 1150 2700 Patient 87.628 kg Weight Physical Exam General Appearance: Alert, Oriented X3, Cooperative, No Acute Distress Cardiovascular: Regular Rate, Normal S1, Normal S2, No Murmurs Lungs: Clear to Auscultation, diminished bibasilarly Abdomen: Normal Bowel Sounds, Soft, No Tenderness, No Masses Extremities: No Clubbing, No Cyanosis, Normal Pulses, 1+ lower extremity edema Current Medications: Current Medications Sig/Zee Start time Last Medication Dose Route Stop Time Status Admin Acetaminophen 650 MG Q6P PRN 08/04 1545 AC PO Aspirin Buffered 81 MG QAM 08/05 0900 AC 08/06 PO 0853 Atorvastatin Calcium 80 MG QPM 08/04 2099 AC 08/05 PO 2009 Clopidogrel Bisulfate 75 MG DAILY 08/05 0900 AC 08/06 PO 0853 Desvenlafaxine 25 MG 08/05 AC 08/05 Succinate PO 2010 Desvenlafaxine 25 MG DAILY 08/05 1545 DC Succinate PO Famotidine 20 MG BID 08/04 2099 AC 08/06 PO 0853 Fenofibrate 145 MG DAILY 08/05 0900 AC 08/06 PO 0853 Ferrous Sulfate 325 MG TID 08/04 2099 AC 08/06 PO 0853 Furosemide 40 MG 0800 & 1700 08/04 1700 AC 08/06 IV 0854 Heparin Sodium 5,000 UNIT Q8 08/04 2200 AC 08/06 (Porcine) SC 0627 Insulin Aspart 0 TIDAC 08/05 1700 AC 08/05 SC 1702 Magnesium Oxide 800 MG DAILY 08/06 0937 AC PO Magnesium Oxide 800 MG ONE ONE 08/06 0900 DC 08/06 PO 08/06 0901 0924 Magnesium Sulfate 1 GM Q2H 08/06 09 DC Dextrose/Water 100 ML IV 08/06 1259 Melatonin 5 MG AT BEDTIME 08/04 2130 AC 08/05 PO 2009 Metoprolol Succinate 75 MG DAILY 08/05 0900 AC 08/06 PO 0853 Oxycodone HCl 30 MG .STK-MED ONE 08/06 2007 DC PO 08/05 2009 Oxycodone HCl 30 MG .STK-MED ONE 08/05 1121 DC PO 08/05 1122 Oxycodone HCl 40 MG Q12 08/04 2100 AC 08/06 PO 0854 Oxycodone HCl 30 MG Q4P PRN 08/04 1545 AC 08/06 PO 0931 Senna/Docusate Sodium 1 TAB QPM PRN 08/04 1545 AC 08/05 PO 0823 Last 24 Hrs of Lab/Adalberto Results Last 24 Hrs of Labs/Mics: Laboratory Tests 08/06/17 0640: Anion Gap 13, Estimated GFR > 60, BUN/Creatinine Ratio 26.4 H, Magnesium 1.3 L Assessment/Plan Assessment: 62 year old man with CAD s/p CABG with stents x 8, HTN, HLD, DM, HFrEF, h/o cardiac arrest, presented with significant exertional dyspnea and new continuous supplemental oxygen requirement. Acute decompensated congestive heart failure: HFrEF 2L supplemental oxygen requirement-SpO2 94% on 2L NC Given 40mg IV lasix in the ED, started 40mg iv bid on the floor Now on room air and less dyspneic, with good diuresis Strict I/O's, daily weights BNP elevated to 60,000, clinically hypervolemic Serial troponins negative for acute ischemic EKG changes Cardiology consulted Recent echocardiogram as an outpatient LVEF 30% Entresto on hold Creatinine improving on diuretics Chest x-ray patchy airspace disease and small bilateral pleural effusions Outpatient follow up at the CHF clinic Hypomagnesia: Related to aggressive diuresis Repleted orally Check BEP, renal function, and magnesium 3 days after discharge Acute kidney injury: Creatinine 1.9 on presentation, improved to 1.1 today with IV diuretics Previously normal baseline 2 months ago Possibly cardiorenal syndrome as renal function is improving with diuresis Continue home regimen of lasix 40mg then 20mg daily on discharge Trend renal function Avoid nephrotoxic agents, no NSAIDs CAD status post CABG/multiple cardiac stents Continue aspirin, plavix, statin, and metoprolol Entresto resumed on discharge DM: Accuchecks TIDAC/HS, sugars have been in 100s since admission Novolog sliding scale insulin, coverage starting blood sugar > 150 HTN: Continue beta yadiel HLD: Continue statin therapy Gout: Allopurinol and indomethacin held for SOLA Anxiety: Continue pristiq 25 mg po daily Heart healthy diet DVT ppx-heparin Full code Stable for discharge today, follow up with cardiology and CHF wellness clinic Problem List: 1. Acute on chronic systolic CHF (congestive heart failure) 2. Dyspnea on exertion 3. Acute kidney injury 4. Hypomagnesemia Pain Ratin Pain Location: n/a Pain Goal: Pain 4 or less Pain Plan: prn Tomorrow's Labs & Rationales: none, discharge
--- NOTE | 2017-08-06 08:49 | Patient Discharge Instructions ---
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 Darrick Collazo. Please follow up at the CHF clinic. Acute Coronary Syndrome Inclusion Criteria At DC or during hospital stay patient has or had the following: ACS DIAGNOSIS No Discharge Core Measures Meds if any: Prescribed or Continued at Discharge Meds if any: NOT Prescribed or Continued at Discharge Congestive Heart Failure Inclusion Criteria At DC or during hospital stay patient has or had the following: CHF DIAGNOSIS Yes Discharge Core Measures Meds if any: Prescribed or Continued at Discharge LENI/ARB for EF <40% Yes Meds if any: NOT Prescribed or Continued at Discharge Cerebrovascular accident Inclusion Criteria At DC or during hospital stay patient has or had the following: CVA/TIA Diagnosis No Discharge Core Measures Meds if any: Prescribed or Continued at Discharge Meds if any: NOT Prescribed or Continued at Discharge Venous thromboembolism Inclusion Criteria VTE Diagnosis No VTE Type NONE VTE Confirmed by (Test) NONE Discharge Core Measures - Per Current guidelines, there needs to be overlap - treatment for the first 5 days of Warfarin therapy. - If discharged on Warfarin prior to 5 days of - overlap therapy, the patient will need to be - assessed for post discharge needs including - *Post discharge parental anticoagulation - *Warfarin and/or parental anticoagulation education - *Follow up date to check INR post discharge At least 5 days overlap therapy as Inpatient No Meds if any: Prescribed or Continued at Discharge Note: Overlap Therapy is Warfarin and Anticoagulant Meds if any: NOT Prescribed or Continued at Discharge
[2017-08-06 08:53] VITALS: BP 124/68
--- NOTE | 2017-08-06 09:36 | Discharge Summary ---
Visit Information Visit Dates Admission Date: 08/04/17 Discharge Date: 08/06/17 Hospital Course Course Attending Physician: Mathew Rivas MD Primary Care Physician: Maykel Medina MD Hospital Course: 62 year old man with CAD s/p CABG with stents x 8, HTN, HLD, DM, HFrEF, h/o cardiac arrest, presented with significant exertional dyspnea and increased supplemental oxygen requirement. The patient was previously on oxygen on an as needed basis but for three days prior to arrival had been using it continuously for progressive exertional dyspnea and orthopnea. He denied any chest pain and ruled out for myocardial ischemia with serial negative troponins. His symptoms, chest x-ray, and markedly elevated proBNP were all consistent with acute exacerbation of congestive heart failure. He also had an acute kidney injury with creatinine elevated to 1.9 on arrival with a previously normal basline. He was treated with IV furosemide for diuresis and his renal injury improved with diuretics consistent with cardiorenal syndrome. Cardiology was consulted and agreed with holding his Entresto for acute kidney injury. The patient did have a recent echocardiogram as an outpatient with left ventricular ejection fraction of 30%, grossly unchanged from prior and this was not repeated as an inpatient. He diuresed approximately 6L in two days with improvement of his creatinine to 1.1. He did have hypomagnesia as a result of aggressive diuresis and this was repleted orally. He was given a prescription to have his renal function and electrolytes including magnesium checked three days after discharge. His supplemental oxygen requirement improved with diuresis and he was ambulating comfortably on room air without dyspnea before discharge. He was discharged home on his previous dose of furosemide and instructed to continue Entresto on discharge. He was instructed to follow up with cardiology and given an appointment at the CHF Wellness clinic and advised to limit his sodium intake. All his other home medications were continued, except NSAIDs, and he should follow up with his primary care physician. Allergies: Coded Allergies: NO KNOWN ALLERGIES (01/21/12) Disposition Summary Disposition Principal Diagnosis: Acute exacerbation of congestive heart failure HFrEF Acute kidney injury Cardiorenal sydrome Hypomagnesia Coronary artery disease s/p CABG and PCI with complications Additional Diagnosis: Complete heart block s/p permanent pacemaker (epicardial) History of pseudoaneurysm repair/mitral valve repair/PFO closure CAD HFrEF Peripheral vascular disease Hypertension Hyperlipidemia Diabetes mellitus Discharge Disposition: home health services Discharge Instructions General Discharge Information Code Status: Full Code Patient's Diet: Diabetic diet with two gram sodium restriction Patient's Activity: As tolerated Follow-Up Instructions/Appts: Please follow up with your primary care physician and clinical registered nurse. Have your blood work to check kidney function and electrolytes including magnesium in three days after discharge. Medications at Discharge Discharge Medications: Stop taking the following medications: Indomethacin (Indomethacin) 50 MG CAPSULE ORAL TWICE DAILY as needed for PAIN/ INFLAMMATION Continue taking these medications: Aspirin (Ecotrin*) 81 MG TABLET.DR 1 Tablet ORAL Every Morning Comments: Last Taken:08/06/17 Time:0900 Allopurinol (Allopurinol) 300 MG TABLET 1 Tablet ORAL Every Morning Comments: Last Taken:08/06/17 Time:0900 Cyanocobalamin (Vitamin B-12) (Cyanocobalamin Injection) 1,000 MCG/ML VIAL 1 Milliliters INTRAMUSC ONCE A MONTH Qty = 2 Sennosides/Docusate Sodium (Senna Laxative Tablet) 8.6 MG-50 MG TABLET 1 Tablet ORAL Every night as needed for CONSTIPATION Comments: Last Taken:08/05/17 Time:1000 Atorvastatin Calcium (Lipitor) 80 MG TABLET 1 Tablet ORAL Every night Comments: Last Taken:08/05/17 Time:5PM Sitagliptin Phos/Metformin HCl (Janumet 50-1,000 MG Tablet) 50 MG-1,000 MG TABLET 1 Tablet ORAL TWICE DAILY Famotidine (Famotidine) 20 MG TABLET 1 Tablet ORAL TWICE DAILY Comments: Last Taken:08/06/17 Time:0900 Clopidogrel Bisulfate (Clopidogrel) 75 MG TABLET 1 Tablet ORAL DAILY Comments: Last Taken:08/06/17 Time:0900 Fenofibrate,Micronized (Fenofibrate) 134 MG CAPSULE 1 Capsule ORAL DAILY Comments: Last Taken:08/06/17 Time:0900 Ferrous Sulfate (Ferrous Sulfate) 325 MG (65 MG IRON) TABLET 1 Tablet ORAL TIDWM Comments: Last Taken:08/06/17 Time:0900 Sacubitril/Valsartan (Entresto 49 MG-51 MG Tablet) 49 MG-51 MG TABLET 1 Tablet ORAL TWICE DAILY Qty = 180 Furosemide (Lasix) 40 MG TABLET 1 Tablet ORAL Every Morning Comments: Last Taken:08/06/17 Time:0900 Furosemide (Lasix) 20 MG TABLET 1 Tablet ORAL Every night Comments: Last Taken:08/05/17 Time:5PM Metoprolol Succinate (Metoprolol Succinate) 50 MG TAB.ER.24H 1.5 Tablet ORAL DAILY Comments: Last Taken:08/06/17 Time:0900 Oxycodone HCl (Oxycontin) 40 MG TAB.ER.12H 1 Tablet ORAL Q12H Comments: Last Taken:08/06/17 Time:0900 Oxycodone HCl (Oxycodone HCl) 30 MG TABLET 1 Tablet ORAL EVERY 4 HOURS NEEDED as needed for PAIN Comments: Last Taken:08/06/17 Time:0915 Amoxicillin (Amoxicillin) 500 MG CAPSULE 4 Capsule ORAL As Directed Qty = 24 Desvenlafaxine Succinate (Pristiq ER) 25 MG TAB.ER.24H 1 Tablet ORAL DAILY Qty = 30 Comments: Last Taken:08/05/17 Time:9PM Copies To: Darrick Pack MD; Maykel Medina MD; Ciro Hill MD Attending Review Statement Documenting Attending: Mathew Rivas MD Copies To: Darrick Pack MD; Maykel Medina MD; Ciro Hill MD Attending Review Statement Documenting Attending: Mathew Rivas MD
--- NOTE | 2017-08-06 10:04 | PN- Cardiology ---
Subjective Subjective: The patient is awake, alert, ambulating the hallway without difficulty The events of the last 24 hours as well as telemetry were reviewed. Review of Systems: The review of systems is negative for chest pains, palpitations nor lightheadedness. The remainder of the 14 point review of systems is noncontributory with the exception of above. Objective Vital Signs and I&Os Vital Signs Date Time Temp Pulse Resp B/P B/P Pulse O2 O2 Flow FiO2 Mean Ox Delivery Rate 08/06 0853 65 124/68 08/06 0705 97.5 65 12 124/68 96 Room Air 08/05 2212 97.6 62 16 116/74 98 08/05 1404 97.1 68 18 116/60 94 Room Air Intake & Output 08/06 1600 08/06 0808/06 0000 08/05 1600 08/05 0808/05 0000 Intake Total 280 300 420 150 100 Output Total 1150 2700 900 1350 1050 Balance -870 -2400 -480 -1200 -950 Intake, IV 20 Intake, Oral 280 300 400 150 100 Output, Urine 1150 2700 900 1350 1050 Patient 193 lb 197 lb Weight Weight Bed scale Measurement Method Physical Exam: General: Nontoxic, no apparent distress. HEENT: Sclera and conjunctiva within normal limits, without xanthelasmas. Neck: Carotids 2+ without bruits. Respiratory: Clear to auscultation, air movement is good, without accessory respiratory muscle use. Heart: Regular rate and rhythm, without murmurs, without JVD. Abdomen: Soft, nontender, no masses, normoactive bowel sounds. Extremities: Without clubbing, cyanosis, without edema. Neuro: Nonfocal exam, strength, 5 out of 5 Skin: Within normal limits without lesions. Psych: Mood and affect: Normal Current Medications: Current Medications Sig/Zee Start time Last Medication Dose Route Stop Time Status Admin Acetaminophen 650 MG Q6P PRN 08/04 1545 AC PO Aspirin Buffered 81 MG QAM 08/05 899 AC 08/06 PO 53 Atorvastatin Calcium 80 MG QPM 08/04 2099 AC 08/05 PO 2009 Clopidogrel Bisulfate 75 MG DAILY 08/05 899 AC 08/06 PO 0853 Desvenlafaxine 25 MG 2100 08/05 2099 AC 08/05 Succinate PO 2010 Desvenlafaxine 25 MG DAILY 08/05 1545 DC Succinate PO Famotidine 20 MG BID 08/04 2100 AC 08/06 PO 0853 Fenofibrate 145 MG DAILY 08/05 0900 AC 08/06 PO 0853 Ferrous Sulfate 325 MG TID 08/04 2100 AC 08/06 PO 0853 Furosemide 40 MG 0800 & 1700 08/04 1700 AC 08/06 IV 0854 Heparin Sodium 5,000 UNIT Q8 08/04 2200 AC 08/06 (Porcine) SC 0627 Insulin Aspart 0 TIDAC 08/05 1700 AC 08/05 SC 1702 Magnesium Oxide 800 MG DAILY 08/06 0937 AC PO Magnesium Oxide 800 MG ONE ONE 08/06 09 DC 08/06 PO 08/06 0901 0924 Magnesium Sulfate 1 GM Q2H 08/06 899 DC Dextrose/Water 100 ML IV 08/06 1259 Melatonin 5 MG AT BEDTIME 08/04 2130 AC 08/05 PO 2010 Metoprolol Succinate 75 MG DAILY 08/05 0900 AC 08/06 PO 0853 Oxycodone HCl 30 MG .STK-MED ONE 08/06 2007 DC PO 08/05 2009 Oxycodone HCl 30 MG .STK-MED ONE 08/05 1121 DC PO 08/05 1122 Oxycodone HCl 40 MG Q12 08/04 2100 AC 08/06 PO 0854 Oxycodone HCl 30 MG Q4P PRN 08/04 1545 AC 08/06 PO 0931 Senna/Docusate Sodium 1 TAB QPM PRN 08/04 1545 AC 08/05 PO 0823 Results Last 48 Hrs of Labs/Mics: Laboratory Tests 08/06/17 0640: Anion Gap 13, Estimated GFR > 60, BUN/Creatinine Ratio 26.4 H, Magnesium 1.3 L 08/05/17 0210: Anion Gap 15, Estimated GFR 41 L, BUN/Creatinine Ratio 22.9, Magnesium 1.4 L, Troponin I 0.04, CBC w Diff NO MAN DIFF REQ, RBC 3.68 L, MCV 89.8, MCH 29.8, MCHC 33.2, RDW 17.0 H, MPV 9.9, Gran % 74.6, Lymphocytes % 15.9 L, Monocytes % 6.9, Eosinophils % 2.2, Basophils % 0.4, Absolute Granulocytes 4.9, Absolute Lymphocytes 1.0 L, Absolute Monocytes 0.5, Absolute Eosinophils 0.1, Absolute Basophils 0 08/04/175: Troponin I 0.03 08/04/17 1353: Anion Gap 13, Estimated GFR 36 L, BUN/Creatinine Ratio 19.5, Glucose 101 H, Calcium 9.1, Total Bilirubin 0.9, AST 30, ALT 36, Alkaline Phosphatase 44, Troponin I 0.03, Wob-O-Qjnvjpvjouz Pept 97967 H, Total Protein 6.9, Albumin 4.0 , Globulin 2.9, Albumin/Globulin Ratio 1.4 08/04/17 1315: PT 14.7 H, INR 1.34 H, CBC w Diff NO MAN DIFF REQ, RBC 3.58 L, MCV 89.7, MCH 30.0, MCHC 33.4, RDW 16.8 H, MPV 10.0, Gran % 80.4 H, Lymphocytes % 11.8 L, Monocytes % 5.4, Eosinophils % 2.2, Basophils % 0.2, Absolute Granulocytes 5.3, Absolute Lymphocytes 0.8 L, Absolute Monocytes 0.4, Absolute Eosinophils 0.1, Absolute Basophils 0 Assessment/Plan Assessment/Plan 1. Acute on chronic systolic heart failure with recent outpatient echocardiogram showing ejection fraction of approximately 30% 2. 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 Acute renal insufficiency; ?cardiorenal 4. Peripheral vascular disease 5. Diabetes mellitus 6. Hypertension/hyperlipidemia The patient presented with acute renal insufficiency as well as gross volume overload. This has resolved with diuresis. We have discussed nephrotoxic agents such as indomethacin, and he will discontinue use of nonsteroidal anti-inflammatory agents. His regimen of entresto will be restarted given his severe cardiomyopathy and chronic congestive heart failure. We will monitor renal function closely while this has been restarted. Repeat electrolytes and a follow-up in our office will be undertaken within the week. Continue telemetry? No
[2017-10-21] MEDS ORDERED: NEOMYCIN-POLYMY10 M1 OT (03:56)
[2017-10-21] MEDS ORDERED: AUGMENTIN 875-1 EACH PO (03:56)
== END 2017-08-06 11:10 | DRG 292 ==
LOC: ERH 12:23 → 1NO 14:37 → ERHI 14:37 → ENRESERV 15:08 → ENTRNSPT 15:51 → EDTRNSPTSTS 15:58 → 1NO 16:11 → CMPTRNSPT 16:17 → 1NO 08-05 07:34 → ENPENDDIS 08-06 09:51 → 1NO 08-06 11:10
PROVIDERS: Emergency Medicine; Internal Medicine Interventional Cardiology
DX: I50.23 Acute on chronic systolic (congestive) heart failure (principal); N17.9 Acute kidney failure, unspecified; E11.42 Type 2 diabetes mellitus with diabetic polyneuropathy; E11.51 Type 2 diabetes mellitus with diabetic peripheral angiopathy without gangrene; E83.42 Hypomagnesemia; Z95.1 Presence of aortocoronary bypass graft; E78.5 Hyperlipidemia, unspecified; Z98.61 Coronary angioplasty status; I11.0 Hypertensive heart disease with heart failure; M10.9 Gout, unspecified; G89.29 Other chronic pain; Z79.82 Long term (current) use of aspirin; Z79.891 Long term (current) use of opiate analgesic; F41.9 Anxiety disorder, unspecified; Z95.0 Presence of cardiac pacemaker; I25.10 Atherosclerotic heart disease of native coronary artery without angina pectoris
CPT/HCPCS: 1NP; 36592; 71045; 82436; 93005; 93010; 99291; J1644; J1940

== ENCOUNTER 2017-10-15 17:00 | Inpatient (IN) | payer OTHER, MEDICARE ==
[~2017-10-15] VITALS: Ht 180.3 cm; Wt 84.9 kg
[~2017-10-15 17:00] MED LIST changes: +AMOXICILLIN500 M2 PO; +ENTRESTO 49 MG1 EACH PO; +LASIX40 M1 PO; +METOPROLOL SUCC50 M2 PO; +OXYCODONE HCL30 M1 PO; +PRISTIQ ER25 MG PO
[2017-10-15 17:41] LABS: ABSOLUTE BASOPHIL COUNT 0 /CUMM (0.0-0.2); ABSOLUTE EOSINOPHIL COUNT 0 /CUMM (0.0-0.7); ABSOLUTE GRANULOCYTE CT 4.6 /CUMM (1.4-6.5); ABSOLUTE LYMPH COUNT 0.9 /CUMM (1.2-3.4); ABSOLUTE MONOCYTE COUNT 0.4 /CUMM (0.10-0.60); BASOPHIL % 0.4 % (0.0-2.0); EOSINOPHIL % 0.6 % (0-5); GRANULOCYTE % 76.5 % (42.2-75.2); HEMATOCRIT 29.2 % (42-52); MEAN CORPUSCULAR HGB 30.2 PG (27.0-31.0); MEAN CORPUSCULAR HGB CONC 33.8 G/DL (33.0-37.0); MEAN CORPUSCULAR VOLUME 89.3 FL (80.0-94.0); MEAN PLATELET VOLUME 9.1 FL (7.4-10.4); PLATELET COUNT 312 /CUMM (130-400); RBC DISTRIBUTION WIDTH 18.4 % (11.5-14.5); RED BLOOD CELL CT 3.27 /CUMM (4.70-6.10); WHITE BLOOD CELL COUNT 5.9 /CUMM (4.8-10.8)
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
--- NOTE | 2017-10-15 18:23 | CT SCAN REPORT ---
EXAMINATION: CT HEAD WITHOUT CONTRAST CLINICAL INFORMATION: Intracranial hemorrhage, mass, posterior headache COMPARISON: None TECHNIQUE: Contiguous axial imaging was performed from the skull base to vertex without intravenous administration of contrast. FINDINGS: There is left parietal encephalomalacia consistent with remote prior infarct. Elsewhere, saravia-white differentiation is maintained without evidence of acute large vessel territory ischemia. Chronic lacunar infarct in the anterior limb of the left internal capsule. There is a chronic lacunar infarct in the right caudate head. No intracranial hemorrhage or extra-axial fluid collection seen. No mass effect or midline shift. Mild periventricular and subcortical white matter hypodensity is seen, consistent with age-appropriate diffuse parenchymal volume loss. Mastoid air cells are clear. No acute sinusitis. Globes and orbits are normal. IMPRESSION: No acute intracranial abnormality seen. Chronic left parietal encephalomalacia. Remote lacunar infarcts, as described above.
--- NOTE | 2017-10-15 18:32 | RADIOLOGY REPORT ---
EXAMINATION: XR CHEST CLINICAL INFORMATION: Chest pain and shortness of breath, CHF. COMPARISON: 09/19/2017 TECHNIQUE: 2 views of the chest were obtained. FINDINGS: Cardiomegaly is present. There is mild upper redistribution consistent with slightly elevated left ventricular end-diastolic pressure. No gross interstitial edema. There is minimal blunting of the costophrenic angles which may be slightly improved when compared to the previous study indicative of underlying small effusions. A left wall pacemaker is noted. The prosthetic mitral valve is again seen. IMPRESSION: Cardiomegaly with mild upper zone redistribution. Tiny pleural effusions.
--- NOTE | 2017-10-15 20:34 | CT SCAN REPORT ---
EXAMINATION: CT ABDOMEN AND PELVIS WITHOUT CONTRAST CLINICAL INFORMATION: Abdominal pain and vomiting. Renal insufficiency. COMPARISON: None available. TECHNIQUE: Multidetector volumetric imaging was performed from the superior aspect of the liver through the pubic symphysis. Sagittal and coronal reformatted images were obtained on the technologist's workstation. FINDINGS: Partially imaged moderate right and small left pleural effusions with adjacent atelectasis. Partially imaged pacemaker. Multiple calcifications throughout the spleen as the sequela of old granulomatous disease. Unenhanced liver is unremarkable. Gallbladder is unremarkable. Partial fatty atrophy of the pancreas. Kidneys are symmetric in size without evidence of hydronephrosis or nephrolithiasis. Adrenal glands are unremarkable. Scattered colonic diverticulosis without evidence of acute diverticulitis. The stomach is decompressed and not well evaluated. The large and small bowel are normal in caliber without evidence of mechanical obstruction. No focal inflammatory changes adjacent to the large or the small bowel. The appendix is normal. There is no free air and there is no intra-abdominal free fluid. No mesenteric or retroperitoneal adenopathy. There is aortoiliac atherosclerotic calcification. The pelvic viscera are normal. No pelvic adenopathy. Small volume free fluid within the pelvic cul-de-sac is nonspecific. There are no acute osseous abnormalities. Thoracolumbar spondylosis. Degenerative changes involving the hip joints bilaterally. No significant soft tissue abnormality. IMPRESSION: - No acute findings in the abdomen or pelvis. - Scattered colonic diverticulosis without evidence of acute diverticulitis. - Small volume free fluid within the pelvic cul-de-sac is nonspecific. - Partially imaged moderate right and small left pleural effusions with adjacent atelectasis. - No hydronephrosis - Multiple calcifications throughout the spleen as the sequela of old granulomatous disease. - Extensive aortoiliac atherosclerotic calcification.
--- NOTE | 2017-10-15 20:44 | RADIOLOGY REPORT ---
XR PORTABLE CHEST CLINICAL INFORMATION: Shortness of breath. COMPARISON: Chest x-ray 10/15/2017. TECHNIQUE: Portable frontal view of the chest was obtained. FINDINGS: Increase in size of right greater than left pleural effusions with adjacent airspace opacities. Increasing central vascular congestion and diffuse interstitial opacities suggesting interstitial pulmonary edema. The cardiac silhouette is enlarged and unchanged. Median sternotomy wires and a pacemaker are partially imaged. IMPRESSION: Worsening right greater than left pleural effusions with adjacent airspace opacities in worsening mild to moderate interstitial pulmonary edema. Stable enlargement of the cardiac silhouette.
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
[2017-10-16 00:16] VITALS: BP 124/62
--- NOTE | 2017-10-16 00:59 | Admission Certification ---
Admission Certification Certification Statement - As attending physician, I certify that at the time of - admission, based on clinical presentation, severity of - symptoms, need for further diagnostic testing and - therapeutic interventions, and risk of adverse outcomes - without in-hospital treatment, in my clinical assessment, - this patient requires an acute hospital stay for a minimum - of two nights or longer. I have also considered psychsocial - factors such as support system, advanced age, financial - issues, cognitive issues, and failed out-patient treatments, - past re-admission history, safety of patient, and lack of - compliance as applicable. Specific rationale supporting this admission is: Acute CHF with SOLA
[2017-10-16 06:00] VITALS: BP 110/68
--- NOTE | 2017-10-16 06:57 | PN- Housestaff ---
Objective Last 24 Hrs of Vital Signs/I&O Vital Signs Date Time Temp Pulse Resp B/P B/P Pulse O2 O2 Flow FiO2 Mean Ox Delivery Rate 10/16 599 97.6 64 18 110/68 96 10/16 0016 97.7 69 18 124/62 97 10/16 0000 97 Nasal 2.0L Cannula 10/15 2226 97.9 60 18 123/68 97 Room Air 10/158 97.6 60 18 130/68 98 Nasal 2.0L Cannula 10/15 1720 97.6 72 18 119/75 98 Room Air Intake & Output 10/16 0800 10/16 0000 10/15 1600 Intake Total 1100 Output Total Balance 1100 Intake, IV 1100 Patient 89.584 kg Weight Current Medications: Current Medications Sig/Zee Start time Last Medication Dose Route Stop Time Status Admin Acetaminophen 650 MG ONCE ONE 10/16 031 DC 10/16 PO 10/17 315 0335 Acetaminophen 0 .STK-MED ONE 10/16 2015 DC IV Acetaminophen 1,000 MG ONCE ONE 10/15 1944 DC 10/15 IV 10/15 Aspirin Buffered 81 MG QAM 10/16 09 AC PO Atorvastatin Calcium 80 MG QPM 10/16 2100 AC PO Clopidogrel Bisulfate 75 MG DAILY 10/16 899 AC PO Fenofibrate 145 MG DAILY 10/16 899 AC PO Furosemide 40 MG 7:30 AM, & 4:30 PM 10/16 1630 AC IV Furosemide 40 MG ONCE ONE 10/16 0230 DC 10/16 IV 10/16 0231 0329 Heparin Sodium 5,000 UNIT Q8 10/16 06 AC 10/16 (Porcine) WI 0554 Metoprolol Succinate 75 MG DAILY 10/16 899 AC PO Oxycodone HCl 30 MG Q4-PRN PRN 10/16 0130 AC 10/16 PO 0134 Sodium Chloride 1,000 ML BOLUS ONE 10/15 193 DC 10/15 IV 10/15 Last 24 Hrs of Lab/Adalberto Results Last 24 Hrs of Labs/Mics: Laboratory Tests 10/16/17 0652: Sodium Pending, Potassium Pending, Chloride Pending, Carbon Dioxide Pending, Anion Gap Pending, BUN Pending, Creatinine Pending, BUN/Creatinine Ratio Pending , CBC w Diff Pending, WBC Pending, RBC Pending, Hgb Pending, Hct Pending, MCV Pending, MCH Pending, MCHC Pending, RDW Pending, Plt Count Pending, MPV Pending 10/16/17 0228: Troponin I 0.02 10/15/17 1720: CBC w Diff NO MAN DIFF REQ, RBC 3.27 L, MCV 89.3, MCH 30.2, MCHC 33.8, RDW 18.4 H, MPV 9.1, Gran % 76.5 H, Lymphocytes % 15.3 L, Monocytes % 7.2, Eosinophils % 0.6, Basophils % 0.4, Absolute Granulocytes 4.6, Absolute Lymphocytes 0.9 L, Absolute Monocytes 0.4, Absolute Eosinophils 0, Absolute Basophils 0 10/15/17 1716: Anion Gap 14, Estimated GFR 41 L, BUN/Creatinine Ratio 18.8, Glucose 110 H, Calcium 9.5, Total Bilirubin 0.6, AST 46, ALT 39, Alkaline Phosphatase 48, Troponin I 0.02, Ypu-W-Acnfassfhtx Pept 36852 H, Total Protein 7.2, Albumin 4.1 , Globulin 3.1, Albumin/Globulin Ratio 1.3, Lipase 43, D-Dimer High Sensitivty 1103 H
[2017-10-16 08:42] LABS: ABSOLUTE BASOPHIL COUNT 0 /CUMM (0.0-0.2); ABSOLUTE EOSINOPHIL COUNT 0 /CUMM (0.0-0.7); ABSOLUTE GRANULOCYTE CT 3.7 /CUMM (1.4-6.5); ABSOLUTE LYMPH COUNT 0.7 /CUMM (1.2-3.4); ABSOLUTE MONOCYTE COUNT 0.4 /CUMM (0.10-0.60); BASOPHIL % 0.3 % (0.0-2.0); GRANULOCYTE % 76.4 % (42.2-75.2); HEMATOCRIT 28.9 % (42-52); MEAN CORPUSCULAR HGB 30.5 PG (27.0-31.0); MEAN CORPUSCULAR HGB CONC 33.7 G/DL (33.0-37.0); MEAN CORPUSCULAR VOLUME 90.5 FL (80.0-94.0); MEAN PLATELET VOLUME 9.5 FL (7.4-10.4); PLATELET COUNT 247 /CUMM (130-400); RBC DISTRIBUTION WIDTH 18.4 % (11.5-14.5); RED BLOOD CELL CT 3.19 /CUMM (4.70-6.10); WHITE BLOOD CELL COUNT 4.9 /CUMM (4.8-10.8)
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
--- NOTE | 2017-10-16 11:34 | PN- Housestaff ---
Win Duran 10/16/17 1134: Subjective Follow-up For: Acute CHF exacerbation Tele-Events Since Last Visit: Sinus pacing overnight rates 60-74 Subjective: Patient seen resting in the bed. Complaining of lethargy, shortness of breath, and headache. Patient needs the oxygen to get up and go to the restroom, but reports that he does not need oxygen resting in bed. Patient is currently on 2 L. Patient initially complained of nausea and vomiting upon presentation to the emergency department, but is no longer complaining of the symptoms at present this morning. Denies chest pain, palpitation, dizziness. Review of Systems Constitutional: Denies: chills, fever. Cardiovascular: Reports: orthopena, peripheral edema. Denies: chest pain, palpitations. Respiratory: Reports: cough, orthopnea. Gastrointestinal: Denies: abdominal pain, nausea, vomiting. Objective Last 24 Hrs of Vital Signs/I&O Vital Signs Date Time Temp Pulse Resp B/P B/P Pulse O2 O2 Flow FiO2 Mean Ox Delivery Rate 10/16 1032 Nasal 2.0L Cannula 10/16 0931 65 110/60 10/16 0800 94 Room Air Room Air 10/16 0600 97.6 64 18 110/68 96 10/16 0016 97.7 69 18 124/62 97 07 0000 97 Nasal 2.0L Cannula 10/15 2226 97.9 60 18 123/68 97 Room Air 10/15 2038 97.6 60 18 130/68 98 Nasal 2.0L Cannula 10/15 1720 97.6 72 18 119/75 98 Room Air Intake & Output 10/16 1600 10/16 0800 10/16 0000 Intake Total 1100 Output Total 900 Balance -900 1100 Intake, IV 1100 Output, Urine 900 Patient 89.584 kg Weight Physical Exam General Appearance: Alert, Oriented X3, No Acute Distress Cardiovascular: Regular Rate, Normal S1, Normal S2 Lungs: Clear to Auscultation Abdomen: Soft, No Tenderness Current Medications: Current Medications Sig/Zee Start time Last Medication Dose Route Stop Time Status Admin Acetaminophen 650 MG Q6-PRN PRN 10/16 0845 AC 10/16 PO 0932 Acetaminophen 650 MG ONCE ONE 10/165 DC 10/16 PO 10/17 315 0335 Acetaminophen 0 .STK-MED ONE 10/16 2015 DC IV Acetaminophen 1,000 MG ONCE ONE 10/15 1944 DC 10/15 IV 10/15 Aspirin Buffered 81 MG QAM 10/16 899 AC 10/16 PO 09 Atorvastatin Calcium 80 MG QPM 10/16 2100 AC PO Clopidogrel Bisulfate 75 MG DAILY 10/16 899 AC 10/16 PO 0929 Fenofibrate 145 MG DAILY 10/16 899 AC 10/16 PO 0929 Furosemide 40 MG 7:30 AM, & 4:30 PM 10/16 1630 AC IV Furosemide 40 MG ONCE ONE 10/16 0230 DC 10/16 IV 10/16 0231 0329 Heparin Sodium 5,000 UNIT Q8 10/16 06 AC 10/16 (Porcine) SC 0554 Metoprolol Succinate 75 MG DAILY 10/16 899 AC 10/16 PO 0931 Oxycodone HCl 30 MG .STK-MED ONE 10/16 013 DC PO 10/16 013 Oxycodone HCl 30 MG Q4-PRN PRN 10/16 129 AC 10/16 PO 0937 Sodium Chloride 1,000 ML BOLUS ONE 10/15 1929 DC 10/15 IV 10/15 Last 24 Hrs of Lab/Adalberto Results Last 24 Hrs of Labs/Mics: Laboratory Tests 10/16/17 1050: Troponin I Pending 10/16/17 0652: Anion Gap 12, Estimated GFR 47 L, BUN/Creatinine Ratio 20.7, Free T4 Pending, Total T3 Pending, CBC w Diff NO MAN DIFF REQ, RBC 3.19 L, MCV 90.5, MCH 30.5, MCHC 33.7, RDW 18.4 H, MPV 9.5, Gran % 76.4 H, Lymphocytes % 13.4 L, Monocytes % 8.9, Eosinophils % 1.0, Basophils % 0.3, Absolute Granulocytes 3.7, Absolute Lymphocytes 0.7 L, Absolute Monocytes 0.4, Absolute Eosinophils 0, Absolute Basophils 0 10/16/17 0228: Troponin I 0.02 10/15/17 1720: CBC w Diff NO MAN DIFF REQ, RBC 3.27 L, MCV 89.3, MCH 30.2, MCHC 33.8, RDW 18.4 H, MPV 9.1, Gran % 76.5 H, Lymphocytes % 15.3 L, Monocytes % 7.2, Eosinophils % 0.6, Basophils % 0.4, Absolute Granulocytes 4.6, Absolute Lymphocytes 0.9 L, Absolute Monocytes 0.4, Absolute Eosinophils 0, Absolute Basophils 0 10/15/17 1716: Anion Gap 14, Estimated GFR 41 L, BUN/Creatinine Ratio 18.8, Glucose 110 H, Calcium 9.5, Total Bilirubin 0.6, AST 46, ALT 39, Alkaline Phosphatase 48, Troponin I 0.02, Auh-A-Nzqcevbsrwe Pept 57914 H, Total Protein 7.2, Albumin 4.1 , Globulin 3.1, Albumin/Globulin Ratio 1.3, Lipase 43, D-Dimer High Sensitivty 1103 H Assessment/Plan Assessment: Patient is a 62-year-old male with a history of hypertension, hyperlipidemia, diabetes status post CABG one year ago presenting with lethargy, shortness of breath, vomiting and headache. Patient being treated for acute on chronic exacerbation of CHF 1. Acute CHF exacerbation 2. Dyspnea on exertion 3. Hyponatremia 4. Hypertension 5. Hyperlipidemia 6. Diabetes mellitus with peripheral neuropathy Problem List: 1. Acute on chronic systolic CHF (congestive heart failure) 2. Dyspnea on exertion 3. Diabetes Pain Ratin Pain Location: HEADACHE Pain Goal: Pain 4 or less Pain Plan: Tylenol Tomorrow's Labs & Rationales: CBC & BEP Carla PERALES,Ahsan 10/16/17 1331: Attending MD Review Statement Attending Statement Attending MD Statement: examined this patient, discuss w/resident/PA/[employer] SUPERVISOR, agreed w/resident/PA/[employer]PERVISOR, reviewed EMR data (avail), discussed with nursing, discussed with case mgmt, amended to note Attending Assessment/Plan: Patient patient seen and examined. Resting comfortably not in any acute distress. Reports feeling better compared to presentation. He had taken off his nasal cannula and was saturating 93-94% on room air. He reports using the oxygen only intermittently at home. He however continues to report shortness of breath on exertion. He reports that he does not recall the last time he was able to ambulate without feeling short of breath. He feels that he is back to his baseline. Imaging studies did reveal moderate sized pleural effusion. Patient admits that he has had therapeutic thoracocentesis in the past few months. Exam does not appear to be in acute distress. No jugular venous distention. Heart sounds are regular. He has diminished breath sounds in the bases with bibasilar crackles. He has trace pedal edema bilaterally. Problems: 1. Acute on chronic systolic heart failure with recent outpatient echocardiogram showing ejection fraction of approximately 30% 2. History of CABG/PCI with a complicated history including development of large pseudoaneurysm of the RCA in 2017 after PCI which was complicated by complete heart block and the patient subsequently underwent pseudoaneurysm repair, mitral valve repair, PFO closure, redo 2 vessel CABG (SVG to PDA and PL) and epicardial pacemaker placement. Plan: Continue diuresis with Lasix 40 mg IV twice daily. Monitor input output And daily weight. Continue his other cardiac regimen. Monitor blood pressure closely. Hyponatremia likely related to his volume overload status. Currently improving. Repeat serum chemistry in a.m. In view of his clinical improvement will hold off any thoracocentesis for now. TSH is elevated with a mildly low free T3 level. Consult endocrinology service.
--- NOTE | 2017-10-16 12:34 | ECHOCARDIOGRAM REPORT ---
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 The estimated LVEF is 20-25%. There is global hypokinesis as well as septal and anterior akinesis. A large echolucent structure is seen on apical views which was previously described as a possible coronary aneurysm. This may as well be consistent with a focal LV aneurysm. Right Ventricle Normal right ventricular size. A large structure is seen on subcostal imaging with echo contrast which may be consistent with a focal RV aneurysm with thrombus. This structure was previously described as a possible coronary aneurysm. Right Atrium Mildly dilated right atrium Left Atrium Mildly dilated left atrium Mitral Valve The mitral valve is status post repair. An annular ring is noted. The mean transvalvular gradient is 3 mmHg. Aortic Valve Trileaflet aortic valve with mild leaflet calcification. There is normal leaflet opening. There is mild aortic insufficiency. Tricuspid Valve Grossly normal appearing tricuspid valve leaflets, structure and function. There is mild to moderate tricuspid insufficiency. Pulmonic Valve Grossly normal appearing pulmonic valve leaflets, structure and function. Pericardium There is no pericardial effusion Great Vessels Grossly normal great vessels CONCLUSIONS Mildly dilated LV chamber size with normal wall thickness. The estimated LVEF is 20-25%. There is global hypokinesis as well as septal and anterior akinesis. A large echolucent structure is seen on apical views which was previously described as a possible coronary aneurysm. This may as well be consistent with a focal LV aneurysm. Normal right ventricular size. A large structure is seen on subcostal imaging with echo contrast which may be consistent with a focal RV aneurysm with thrombus. This structure was previously described as a possible coronary aneurysm. The mitral valve is status post repair. An annular ring is noted. The mean transvalvular gradient is 3 mmHg. Trileaflet aortic valve with mild leaflet calcification. There is normal leaflet opening. There is mild aortic insufficiency. There is mild to moderate tricuspid insufficiency. Further imaging through either cardiac CTA or cardiac MRI performed under protocol i.e. on the [facility] (given the presence of a pacemaker with epicardial leads) should be considered for further clarification of the echocardiographic findings. Donald Hernandez M.D. (Electronically Signed) Final Date: 16 October 2017 12:32 MEASUREMENTS (Male / Female) Normal Values 2D ECHO LV Diastolic Diameter PLAX 6.3 cm 4.2 - 5.9 / 3.9 - 5.3 cm LV Systolic Diameter PLAX 5.5 cm 2.1 - 4.0 cm LV Fractional Shortening PLAX 12.7 % 25 - 46 % LV Ejection Fraction 2D Teich 26.7 % IVS Diastolic Thickness 1.1 cm LVPW Diastolic Thickness 1.2 cm LV Relative Wall Thickness 0.4 RV Internal Dim ED PLAX 4.1 cm 1.9 - 3.8 cm LVOT Diameter 2.0 cm Aortic Root Diameter 2.8 cm LA Systolic Diameter LX 4.5 cm 3.0 - 4.0 / 2.7 - 3.8 cm MV Area Planimetry 2.9 cm Ascending Aorta Diameter 3.7 cm DOPPLER AV Peak Velocity 107.0 cm/s AV Peak Gradient 4.6 mmHg AV Mean Velocity 73.5 cm/s AV Mean Gradient 2.0 mmHg AV Velocity Time Integral 21.4 cm LVOT Peak Velocity 84.6 cm/s LVOT Peak Gradient 2.9 mmHg LVOT Mean Velocity 52.4 cm/s LVOT Mean Gradient 1.0 mmHg LVOT Velocity Time Integral 16.9 cm LVOT Stroke Volume 53.1 cm AV Area Cont Eq vti 2.5 cm AV Area Cont Eq pk 2.5 cm MV Peak Velocity 165.0 cm/s MV Peak Gradient 10.9 mmHg MV Mean Velocity 77.5 cm/s MV Mean Gradient 3.0 mmHg Mitral E Point Velocity 154.0 cm/s Mitral A Point Velocity 108.0 cm/s Mitral E to A Ratio 1.4 MV PHT Velocity 170.0 cm/s MV Deceleration Luce 694.0 cm/s MV Pressure Half Time 73.5 ms MV Area PHT 3.0 cm MV Deceleration Time 250.0 ms MR Peak Velocity 443.0 cm/s MR Peak Gradient 78.5 mmHg TR Peak Velocity 339.0 cm/s TR Peak Gradient 46.0 mmHg Right Atrial Pressure 5.0 mmHg Pulmonary Artery Systolic Pressure 51.0 mmHg Right Ventricular Systolic Pressure 51.0 mmHg PV Peak Velocity 88.2 cm/s PV Peak Gradient 3.1 mmHg PV Mean Velocity 62.4 cm/s PV Mean Gradient 2.0 mmHg PV Velocity Time Integral 19.6 cm LV E' Lateral Velocity 4.1 cm/s Mitral E to LV E' Lateral Ratio 37.7 LV E' Septal Velocity 3.0 cm/s Mitral E to LV E' Septal Ratio 51.0
--- NOTE | 2017-10-16 14:41 | NUCLEAR MEDICINE REPORT ---
EXAMINATION: PULMONARY VENTILATION PERFUSION STUDY CLINICAL INFORMATION: Dyspnea, elevated d-dimer. COMPARISON: No previous lung scan is available for comparison. Radiograph of the chest dated 10/15/2017 is available for comparison. TECHNIQUE: Serial gamma scintillation camera images were obtained over the posterior chest during the single breath, equilibrium rebreathing and washout of 8.4 mCi Xe 133 gas. The patient then received 4.2 mCi Tc-99m MAA intravenously and a 6-view perfusion study was performed. FINDINGS: Ventilation images: On the single breath and equilibrium images there is homogeneous distribution of gas bilaterally. During the washout phase there is no abnormal retention. Perfusion images: No segmental perfusion defects are present. There is homogeneous distribution of activity bilaterally. There are no focal anatomic appearing perfusion defects present. The cardiac silhouette appears moderately dilated. IMPRESSION: Very low probability of pulmonary embolism.
[2017-10-16 14:42] VITALS: BP 114/70
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
--- NOTE | 2017-10-16 17:04 | PN- Student ---
Subjective Subjective: This is a 62 year old male with past medical history of hypertension, hyperlipidemia, HFrEF, status post pacemaker, CAD, s/p CABG with multiple stents , MV repear, nephrolithiasis, gout, type 2 diabetic with neuropathy. He came to the ER on October 15 for worsening shortness of breath, and a 4 day history of nausea, vomiting, and headache. The nausea, vomiting, and headache began four days ago and has been progressively worsening. He has been vomiting after eating, and denies any blood in the vomit. The headache is currently at a 7/10 on the pain scale. He has shortness of breath that has been worsening for some time following a surgical operation on his heart in August. It has worsened to the point that he has shortness of breath walking to the bathroom and cannot lie flat without becoming short of breath. He is on oxygen at home 2-3 L as needed and uses it mostly at night. He has been sleeping on 2-3 pillows at night. He denies chest pain, cough, fever, chills, dizziness, unbalanced gait, and temperature insensitivity. His current complaints have been related back to a complicated cardiac history. In 2011, he began noticing progressive shortness of breath to the point that he could not walk 20 yards to his mailbox. He was evaluated by a placement director who performed an angiogram and sent the patient for bipass surgery. The patient is unaware if it was a double or triple bipass. He noted his health improved greatly following the procedure. In 2016, he suffered a heart attack. 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 The patient had a hard time finding a surgeon who would operate on him and finally found a surgeon who repaired the aneurysm of the heart and decided to stop his anticoagulation for the aneurysm of the brain. The patient reports that the aneurysm in his brain resolved and his surgery for his coronary aneurysm was performed in August of 2017. He also was given a pacemaker with the same operation, although he states that he does not know why. His most recent echocardiogram was performed after this surgery. He intially felt better following the surgery but them became increasingly short of breath in the weeks that followed. He was evaluated for the shortness of breath and found to have bilateral pulmonary effusions. They were 80% drained in August of 2017 and he was given Lasix for the remaining 20%. He does not feel that the Lasix has been helpful and attributes his shortness of breath to his pleural effusions. He also feels he has increased fatigue mostly from the Lasix making him use the bathroom several times per night. Past Medical History Chronic Conditions: Patient initially denied any chronic medical conditions. Upon promting he admitted to the following: -Diabetes: he does not know when he was initially diagnosed with diabetes, he believes it was more than 10 years ago. He states that he does not measure his blood sugar regularly and just manages his medications by symptoms. He notes associated neuropathy in his hands and feet. -Gout: patient has had several episodes of gout, last episode was several years prior. -Arthritis: patient states arthritis for 30 years. 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 He stated he had at least a 5 year period of occassionally drinking many beers on his boat. Up to 18 in a 24 hour period -Never smoker -Denies illegal drug use -He is attentive to his diet and minimizes salt Family History -Father passed at 67 years old, patient stated the cause as "old age", but did note that his father had a lung removed. -Mother passed at 39 years old from cirrhosis of the liver. -3 children, two healthy, one passed from car accident. Review of symptoms: Patient denied changes to vision, hearing, taste, new nodules, or changes to digestion.
[2017-10-16 22:55] VITALS: BP 114/56
[2017-10-17 05:59] VITALS: BP 126/64
--- NOTE | 2017-10-17 06:59 | PN- Housestaff ---
Win Duran 10/17/17 0659: Subjective Follow-up For: ACUTE ON CHRONIC CHF EXACERBATION Tele-Events Since Last Visit: SINUS PACING, RATE 59-73 OVERNIGHT Subjective: Patient seen resting comfortably in the bed. He is now off the nasal cannula, reports that he has not needed to use it since yesterday. Patient states that he is still lethargic, but feels ready to go home as he is no longer vomiting or nauseous. Denies shortness of breath or cough, chest pain, palpitations. Patient is still complaining of a headache that is pounding in nature at the base of his skull bilaterally. He also complains of "bug bites" over similar area, that he blames on fleas from his dog. Review of Systems Constitutional: Denies: chills, diaphoresis, fever, malaise. Cardiovascular: Reports: peripheral edema. Denies: chest pain, palpitations, syncope. Respiratory: Reports: cough, sputum production. Denies: wheezing. Gastrointestinal: Denies: abdominal pain, nausea, vomiting. Objective Last 24 Hrs of Vital Signs/I&O Vital Signs Date Time Temp Pulse Resp B/P B/P Pulse O2 O2 Flow FiO2 Mean Ox Delivery Rate 10/17 0559 98.9 71 18 126/64 97 Room Air 10/16 2302 Room Air Room Air 10/16 2255 98.2 63 18 114/56 98 Room Air 10/16 1442 98.1 64 18 114/70 98 Room Air 10/16 1032 Nasal 2.0L Cannula 10/16 0931 65 110/60 10/16 0800 94 Room Air Room Air Intake & Output 10/17 0800 10/17 0000 10/16 1600 Intake Total 100 50 720 Output Total 1000 1000 1100 Balance -900 -950 -380 Intake, IV 20 Intake, Oral 100 50 700 Output, Urine 1000 1000 1100 Patient 86.636 kg Weight Physical Exam General Appearance: Alert, Oriented X3, Cooperative, No Acute Distress Neck: Supple, No JVD Cardiovascular: Regular Rate, Normal S1, Normal S2, No Murmurs Lungs: Clear to Auscultation, Decreased air sounds in the left base Abdomen: Normal Bowel Sounds, Soft, No Tenderness Neurological: Normal Gait, Normal Speech, Strength at 5/5 X4 Ext, Diminished senstation in upper and lower extremities Current Medications: Current Medications Sig/Zee Start time Last Medication Dose Route Stop Time Status Admin Acetaminophen 650 MG Q6-PRN PRN 10/16 0845 AC 10/17 PO 06 Aspirin Buffered 81 MG QAM 10/16 0900 AC 10/16 PO 928 Atorvastatin Calcium 80 MG QPM 10/16 2100 AC 10/16 PO 2058 Clopidogrel Bisulfate 75 MG DAILY 10/16 09 DC 10/16 PO 928 Desvenlafaxine 25 MG DAILY 10/17 09 AC Succinate PO Diphenhydramine HCl 1 DAVID Q6P PRN 10/17 614 AC TOP Diphenhydramine HCl 1 DAVID ONCE ONE 10/16 2200 DC 10/16 TOP 10/16 220 2233 Docusate Sodium 100 MG DAILY NEEDED PRN 10/17 0600 AC 10/16 PO 2057 Fenofibrate 145 MG DAILY 10/16 899 AC 10/16 PO 928 Furosemide 40 MG 7:30 AM, & 4:30 PM 10/16 1630 AC 10/16 IV 1623 Furosemide 20 MG ONCE ONE 10/16 1200 DC 10/16 IV 10/16 1201 1200 Heparin Sodium 5,000 UNIT Q8 10/16 06 AC 10/17 (Porcine) SC 0606 Melatonin 5 MG AT BEDTIME 10/17 2100 AC 10/16 PO 2138 Melatonin 5 MG .STK-MED ONE 10/16 213 DC PO 10/16 213 Metoprolol Succinate 75 MG DAILY 10/16 09 AC 10/16 PO 0931 Oxycodone HCl 30 MG .STK-MED ONE 10/16 1618 DC PO 10/16 1619 Oxycodone HCl 30 MG .STK-MED ONE 10/16 0933 DC PO 10/16 0934 Oxycodone HCl 30 MG Q4-PRN PRN 10/16 0130 AC 10/17 PO 06 Sacubitril/Valsartan 1 TAB BID 10/16 1145 AC 10/16 PO 2058 Venlafaxine HCl 25 MG 0800 10/16 1745 DC PO Last 24 Hrs of Lab/Adalberto Results Last 24 Hrs of Labs/Mics: Laboratory Tests 10/17/17 0625: Sodium Pending, Potassium Pending, Chloride Pending, Carbon Dioxide Pending, Anion Gap Pending, BUN Pending, Creatinine Pending, BUN/Creatinine Ratio Pending , Glucose Pending, CBC w Diff Pending, WBC Pending, RBC Pending, Hgb Pending, Hct Pending, MCV Pending, MCH Pending, MCHC Pending, RDW Pending, Plt Count Pending, MPV Pending 10/16/17 1050: Troponin I 0.01 Microbiology 10/16 1840 BLOOD: Blood Culture - RECD 10/16 1820 BLOOD: Blood Culture - RECD 10/16 1620 BLOOD: Blood Culture - CAN Cancelled: Cancelled via OE: Per MD Decision Assessment/Plan Assessment: Patient is a 62-year-old male with a history of hypertension, hyperlipidemia, diabetes status post CABG one year ago presenting with lethargy, shortness of breath, vomiting and headache. Patient being treated for acute on chronic exacerbation of CHF 1. Acute CHF exacerbation 2. Dyspnea on exertion 3. Hyponatremia 4. Hypertension 5. Hyperlipidemia 6. Diabetes mellitus with peripheral neuropathy tolerate gabapentin Problem List: 1. Pleural effusion 2. Diabetes 3. Acute on chronic systolic CHF (congestive heart failure) 4. Dyspnea Pain Ratin Pain Location: Headache Pain Goal: Pain 4 or less Pain Plan: Tylenol Tomorrow's Labs & Rationales: CBC & BEP DVT/Prophylaxis: pharmacological Carla PERALES,Ahsan 10/17/17 1414: Attending MD Review Statement Attending Statement Attending MD Statement: examined this patient, discuss w/resident/PA/TRAFFIC RATE ANALYST, agreed w/resident/PA/TRAFFIC RATE ANALYST, reviewed EMR data (avail), discussed with nursing, discussed with case mgmt, amended to note Attending Assessment/Plan: Patient seen and examined. Resting comfortably not in any acute distress. Continues to maintain saturation on room air at rest. Reports feeling better compared to presentation. Denies chest pain or shortness of breath at rest. Does admit to shortness of breath with exertion. Case discussed with cardiology and pulmonology service. Despite diuresis in the hospital during his last hospital stay he ended up being rehospitalized. We are recommending therapeutic thoracocentesis in order to help prevent another episode of exacerbation of his symptoms. Patient however has been on Plavix therapy. This has been discontinued. Once he has been off this for at least 5 days decision about thoracocentesis will be revisited. His renal function is stable. Creatinine has actually improved. We will continue intravenous diuresis for another day. We will add Aldactone to his regimen. He remains clinically stable tomorrow he may be discharged home and follow-up with the pulmonology and cardiology service as an outpatient next week for reevaluation regarding thoracocentesis. Patient is in agreement with this plan.
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
[2017-10-17 08:20] LABS: ABSOLUTE BASOPHIL COUNT 0 /CUMM (0.0-0.2); ABSOLUTE EOSINOPHIL COUNT 0.1 /CUMM (0.0-0.7); ABSOLUTE GRANULOCYTE CT 3.4 /CUMM (1.4-6.5); ABSOLUTE LYMPH COUNT 0.6 /CUMM (1.2-3.4); ABSOLUTE MONOCYTE COUNT 0.4 /CUMM (0.10-0.60); BASOPHIL % 0.4 % (0.0-2.0); EOSINOPHIL % 2.7 % (0-5); GRANULOCYTE % 75.8 % (42.2-75.2); HEMATOCRIT 28.5 % (42-52); MEAN CORPUSCULAR HGB 30.5 PG (27.0-31.0); MEAN CORPUSCULAR HGB CONC 34.3 G/DL (33.0-37.0); MEAN CORPUSCULAR VOLUME 89.2 FL (80.0-94.0); MEAN PLATELET VOLUME 9.5 FL (7.4-10.4); PLATELET COUNT 276 /CUMM (130-400); RBC DISTRIBUTION WIDTH 18.5 % (11.5-14.5); WHITE BLOOD CELL COUNT 4.5 /CUMM (4.8-10.8)
--- NOTE | 2017-10-17 10:18 | PN- Cardiology ---
Subjective Subjective: Telemetry reviewed. Paced rhythm. No significant arrhythmias. 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 He underwent pseudoaneurysm repair, mitral valve repair with annuloplasty, PFO closure, redo two-vessel coronary bypass with saphenous vein graft to the PDA and posterolateral and epicardial pacemaker placement. Postoperatively over the past year he has had progressive left ventricular dysfunction with left medical ejection fraction around 25%. However however immediately after his surgical procedure his ejection fraction was 44%. He has not been prescribed oral anticoagulation because of an intracranial bleed while on triple anticoagulant therapy in the hospital and is currently on dual antiplatelet agents. CT angiogram of the coronary arteries in July prior to his surgical procedure at [facility] suggested a large inferior pseudoaneurysm of the right coronary artery, a large degree of thrombus inside the pseudoaneurysm and the pseudoaneurysm causing extrinsic compression of the right ventricular free wall. There was also thrombus seen in the right ventricle. BELL to the LAD and vein graft to the obtuse marginal was patent. The vein graft to the PDA was occluded. Objective Vital Signs and I&Os Vital Signs Date Time Temp Pulse Resp B/P B/P Pulse O2 O2 Flow FiO2 Mean Ox Delivery Rate 10/17 0800 71 118/64 10/17 0559 98.9 71 18 126/64 97 Room Air 10/16 2302 Room Air Room Air 10/16 2255 98.2 63 18 114/56 98 Room Air 10/16 1442 98.1 64 18 114/70 98 Room Air 10/16 1032 Nasal 2.0L Cannula Intake & Output 10/17 1600 /12 0800 07/12 0000 /11 1600 / 0800 07 0000 Intake Total 100 50 720 1100 Output Total 1000 1000 1100 900 Balance -900 -950 -380 -900 1100 Intake, IV 20 1100 Intake, Oral 100 50 700 Output, Urine 1000 1000 1100 900 Patient 191 lb 198 lb Weight Physical Exam: On physical exam the patient looked and appeared very comfortable. Head normocephalic atraumatic Eyes sclera anicteric conjunctiva showed mild pallor extraocular muscles were normal Neck no jugular venous distention no thyroid masses no palpable nodes Chest lungs were clear except for decrease in entry in the right base Heart regular rhythm with a 1/6 systolic murmur Abdomen soft no organomegaly bowel sounds normal Extremities no clubbing cyanosis or edema Neurological no gross motor or sensory deficits Current Medications: Current Medications Sig/Zee Start time Last Medication Dose Route Stop Time Status Admin Acetaminophen 650 MG Q6-PRN PRN 10/16 0845 AC 10/17 PO 06 Aspirin Buffered 81 MG QAM 10/16 09 AC 10/17 PO 08 Atorvastatin Calcium 80 MG QPM 10/16 2100 AC 10/16 PO 205 Clopidogrel Bisulfate 75 MG DAILY 10/16 09 DC 10/16 PO 09 Desvenlafaxine 25 MG DAILY 10/17 09 AC 10/17 Succinate PO 08 Diphenhydramine HCl 1 DAVID Q6P PRN 10/17 614 AC TOP Diphenhydramine HCl 1 DAVID ONCE ONE 10/16 2199 DC 10/16 TOP 10/16 2200 223 Docusate Sodium 100 MG DAILY NEEDED PRN 10/17 06 AC 10/16 PO 2057 Fenofibrate 145 MG DAILY 10/16 09 AC 10/17 PO 08 Furosemide 40 MG 7:30 AM, & 4:30 PM 10/16 1630 AC 10/17 IV 0800 Furosemide 20 MG ONCE ONE 10/16 1200 DC 10/16 IV 10/16 1201 1200 Heparin Sodium 5,000 UNIT Q8 10/16 06 AC 10/17 (Porcine) SC 0606 Melatonin 5 MG AT BEDTIME 10/17 2100 AC 10/16 PO 2138 Melatonin 5 MG .STK-MED ONE 10/17 2135 DC PO 10/16 213 Metoprolol Succinate 75 MG DAILY 10/16 0900 AC 10/17 PO 0800 Oxycodone HCl 30 MG .STK-MED ONE 10/16 1618 DC PO 10/16 1619 Oxycodone HCl 30 MG Q4-PRN PRN 10/16 0130 AC 10/17 PO 0606 Sacubitril/Valsartan 1 TAB BID 10/16 1145 AC 10/17 PO 0800 Venlafaxine HCl 25 MG 0800 10/16 1745 DC PO Results Last 48 Hrs of Labs/Mics: Laboratory Tests 10/17/17 0625: Anion Gap 10, Estimated GFR > 60, BUN/Creatinine Ratio 25.5 H, Glucose 102 H, TSH 3.870, Thyroxine (T4) 8.8, Total Testosterone 242.0, CBC w Diff NO MAN DIFF REQ, RBC 3.20 L, MCV 89.2, MCH 30.5, MCHC 34.3, RDW 18.5 H, MPV 9.5, Gran % 75.8 H, Lymphocytes % 13.1 L, Monocytes % 8.0, Eosinophils % 2.7, Basophils % 0.4, Absolute Granulocytes 3.4, Absolute Lymphocytes 0.6 L, Absolute Monocytes 0.4, Absolute Eosinophils 0.1, Absolute Basophils 0, Lyme Disease Antibody Pending 10/16/17 1050: Troponin I 0.01 10/16/17 0652: Anion Gap 12, Estimated GFR 47 L, BUN/Creatinine Ratio 20.7, TSH 5.620 H, Free T4 1.78, Total T3 0.83 L, CBC w Diff NO MAN DIFF REQ, RBC 3.19 L, MCV 90.5, MCH 30.5, MCHC 33.7, RDW 18.4 H, MPV 9.5, Gran % 76.4 H, Lymphocytes % 13.4 L , Monocytes % 8.9, Eosinophils % 1.0, Basophils % 0.3, Absolute Granulocytes 3.7 , Absolute Lymphocytes 0.7 L, Absolute Monocytes 0.4, Absolute Eosinophils 0, Absolute Basophils 0 10/16/17 0228: Troponin I 0.02 10/15/17 1720: CBC w Diff NO MAN DIFF REQ, RBC 3.27 L, MCV 89.3, MCH 30.2, MCHC 33.8, RDW 18.4 H, MPV 9.1, Gran % 76.5 H, Lymphocytes % 15.3 L, Monocytes % 7.2, Eosinophils % 0.6, Basophils % 0.4, Absolute Granulocytes 4.6, Absolute Lymphocytes 0.9 L, Absolute Monocytes 0.4, Absolute Eosinophils 0, Absolute Basophils 0 10/15/17 1716: Anion Gap 14, Estimated GFR 41 L, BUN/Creatinine Ratio 18.8, Glucose 110 H, Calcium 9.5, Total Bilirubin 0.6, AST 46, ALT 39, Alkaline Phosphatase 48, Troponin I 0.02, Pdp-S-Ehjgwxjebwu Pept 43603 H, Total Protein 7.2, Albumin 4.1 , Globulin 3.1, Albumin/Globulin Ratio 1.3, Lipase 43, D-Dimer High Sensitivty 1103 H Assessment/Plan Assessment/Plan In summary this 62-year-old gentleman with a complex cardiac history in the past was admitted with fatigue some vomiting significant shortness of breath on exertion. He was found to have a moderate size right pleural effusion. His echocardiogram interpretation is complex and does show a mass adjacent to the left ventricle. He has a following problems 1. Coronary artery disease with previous coronary artery bypass graft surgery in 2009. In 2016 he had unstable angina that required percutaneous intervention was complicated by right coronary artery pseudoaneurysm, right ventricular thrombus, peripheral embolization, MSSA bacteremia, complete heart block, he subsequently underwent pseudoaneurysm repair, mitral valve repair by annuloplasty, PFO closure, redo two-vessel coronary artery bypass graft with saphenous vein graft to the PDA and posterolateral and epicardial pacemaker placement. He has had a previous intracranial bleed on triple anticoagulants and therefore he was maintained on dual antiplatelet agents because of his stent intervention. Although oral anticoagulation had not been overtly recommended because of an intracranial bleed. However he is now more than a year after his stent placement and this can be reconsidered if needed. 2. Symptoms of low cardiac output and congestive heart failure based on right pleural effusion. His resting oximetry saturations appears satisfactory. His left ventricular ejection fraction is about 20-25% progressively has declined and he has some mass suggested adjacent to the left ventricle etiology of which needs to be redetermined. I would suggest ambulating him and observing his oximetry, adding Spironolactone 25 mg to his current regimen, consider thoracentesis of the right pleural effusion, upon discharge he should have a cardiac MRI or CT angiography to redetermine the cardiac anatomy. If his oximetry on ambulation does not drop he could be discharged and if thoracentesis is needed after a five-day abstinence of Plavix this can be performed as an outpatient. Furthermore he will need cardiac MRI or CT angiogram as an outpatient as well. For the time being I would start him on Spironolactone 25 mg and observe him for at least 24-48 hours to make sure he remains hemodynamically stable. Continue telemetry? Yes
--- NOTE | 2017-10-17 11:02 | RADIOLOGY REPORT ---
EXAMINATION: XR CHEST CLINICAL INFORMATION: Shortness of breath COMPARISON: Chest x-ray 10/15/2017 TECHNIQUE: 2 views of the chest were obtained. FINDINGS: Stable cardiac silhouette. Pacemaker again noted. Lungs are adequately aerated. Bibasilar opacities and small pleural effusions appear stable. Central vascular congestion is unchanged. Degenerative changes of the spine. IMPRESSION: Stable examination demonstrating bibasilar airspace disease and small pleural effusions.
--- NOTE | 2017-10-17 11:24 | Patient Discharge Instructions ---
Discharge Instructions General Discharge Information You were seen/treated for: Congestive heart failure, with pleural effusion, and hyponatremia. Watch for these problems: If you develop sudden shortness of breath, nausea/vomiting, chest pain, fainting , dizziness please go to your nearest emergency room. 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 Upon discharge should have a cardiac MRI or CT angiography to redetermine the cardiac anatomy. Please follow up with cardiology, and please be sure to follow- up with the CHF clinic as an outpatient as well. Of note, one of your diabetes medications has been changed (Janumet). This medicine is made up of two drugs, Sitagliptin (JANUvia) and METformin. The medication has been changed so you can continue taking the Januvia as a new prescription, but you should no longer take metformin. Diet Continue normal diet: Yes Recommended Diet: Heart Healthy Activity Full Activity/No Limits: No Activity Self Limited: Yes Acute Coronary Syndrome Inclusion Criteria At DC or during hospital stay patient has or had the following: ACS DIAGNOSIS No Discharge Core Measures Meds if any: Prescribed or Continued at Discharge Meds if any: NOT Prescribed or Continued at Discharge Congestive Heart Failure Inclusion Criteria At DC or during hospital stay patient has or had the following: CHF DIAGNOSIS Yes Discharge Core Measures Meds if any: Prescribed or Continued at Discharge LENI/ARB for EF <40% Yes Meds if any: NOT Prescribed or Continued at Discharge Cerebrovascular accident Inclusion Criteria At DC or during hospital stay patient has or had the following: CVA/TIA Diagnosis No Discharge Core Measures Meds if any: Prescribed or Continued at Discharge Meds if any: NOT Prescribed or Continued at Discharge Venous thromboembolism Inclusion Criteria VTE Diagnosis No VTE Type NONE VTE Confirmed by (Test) LUNG SCAN (V/Q) Discharge Core Measures - Per Current guidelines, there needs to be overlap - treatment for the first 5 days of Warfarin therapy. - If discharged on Warfarin prior to 5 days of - overlap therapy, the patient will need to be - assessed for post discharge needs including - *Post discharge parental anticoagulation - *Warfarin and/or parental anticoagulation education - *Follow up date to check INR post discharge At least 5 days overlap therapy as Inpatient No Meds if any: Prescribed or Continued at Discharge Note: Overlap Therapy is Warfarin and Anticoagulant Meds if any: NOT Prescribed or Continued at Discharge
--- NOTE | 2017-10-17 13:44 | PN- Pulmonary ---
Subjective HPI/Critical Care Issues: Doing ok stable on room air Objective Current Medications: Current Medications Sig/Eze Start time Last Medication Dose Route Stop Time Status Admin Acetaminophen 650 MG Q6-PRN PRN 10/16 0845 AC 10/17 PO 06 Aspirin Buffered 81 MG QAM 10/16 0900 AC 10/17 PO 0800 Atorvastatin Calcium 80 MG QPM 10/16 2100 AC 10/16 PO 2059 Clopidogrel Bisulfate 75 MG DAILY 10/16 0900 DC 10/16 PO 0929 Desvenlafaxine 25 MG DAILY 10/17 0900 AC 10/17 Succinate PO 0800 Diphenhydramine HCl 1 DAVID Q6P PRN 10/17 0615 AC 10/17 TOP 1043 Diphenhydramine HCl 1 DAVID ONCE ONE 10/160 DC 10/16 TOP 10/16 2200 223 Docusate Sodium 100 MG DAILY NEEDED PRN 10/17 0600 AC 10/16 PO 205 Fenofibrate 145 MG DAILY 10/16 0900 AC 10/17 PO 0800 Furosemide 40 MG 7:30 AM, & 4:30 PM 10/16 1630 AC 10/17 IV 0800 Heparin Sodium 5,000 UNIT Q8 10/16 0600 AC 10/17 (Porcine) SC 0606 Melatonin 5 MG AT BEDTIME 10/17 2100 AC 10/16 PO 2138 Melatonin 5 MG .STK-MED ONE 10/16 2136 DC PO 10/16 2137 Metoprolol Succinate 75 MG DAILY 10/16 0900 AC 10/17 PO 0800 Oxycodone HCl 30 MG .STK-MED ONE 10/16 1618 DC PO 10/16 1619 Oxycodone HCl 30 MG Q4-PRN PRN 10/16 0130 AC 10/17 PO 0606 Sacubitril/Valsartan 1 TAB BID 10/16 1145 AC 10/17 PO 0800 Spironolactone 25 MG DAILY 10/17 1245 AC PO Venlafaxine HCl 25 MG 0800 10/16 1745 DC PO Vital Signs & I&O Last 24 Hrs of Vitals and I&O: Vital Signs Date Time Temp Pulse Resp B/P B/P Pulse O2 O2 Flow FiO2 Mean Ox Delivery Rate 10/17 0800 71 118/64 07 0559 98.9 71 18 126/64 97 Room Air 10/16 2302 Room Air Room Air 10/16 2255 98.2 63 18 114/56 98 Room Air 10/16 1442 98.1 64 18 114/70 98 Room Air Intake & Output 10/17 1600 / 0800 07/12 0000 Intake Total 100 50 Output Total 1000 1000 Balance -900 -950 Intake, Oral 100 50 Output, Urine 1000 1000 Patient 191 lb Weight Impression/Plan Impression/Plan Impression/Plan: General: Nontoxic, no apparent distress. HEENT: Sclera and conjunctiva within normal limits, without xanthelasmas. Neck: Carotids 2+ without bruits. Respiratory: Scattered rhonchi and rales, air movement is decreased at bases, without accessory respiratory muscle use. Heart: Regular rate and rhythm, without murmurs, without JVD. Abdomen: Soft, nontender, no masses, normoactive bowel sounds. Extremities: Without clubbing, cyanosis, without edema. Neuro: Nonfocal exam, strength, 5 out of 5 Skin: Within normal limits without lesions. Psych: Mood and affect: Normal vq IMPRESSION: Very low probability of pulmonary embolism. DICTATED BY: Keyur Padilla MD DATE/TIME DICTATED:10/16/171432 ct abd IMPRESSION: - No acute findings in the abdomen or pelvis. - Scattered colonic diverticulosis without evidence of acute diverticulitis. - Small volume free fluid within the pelvic cul-de-sac is nonspecific. - Partially imaged moderate right and small left pleural effusions with adjacent atelectasis. - No hydronephrosis - Multiple calcifications throughout the spleen as the sequela of old granulomatous disease. - Extensive aortoiliac atherosclerotic calcification. DICTATED BY: Hemant Cohen MD DATE/TIME DICTATED:10/15/172022 ECHO CONCLUSIONS Mildly dilated LV chamber size with normal wall thickness. The estimated LVEF is 20-25%. There is global hypokinesis as well as septal and anterior akinesis. A large echolucent structure is seen on apical views which was previously described as a possible coronary aneurysm. This may as well be consistent with a focal LV aneurysm. Normal right ventricular size. A large structure is seen on subcostal imaging with echo contrast which may be consistent with a focal RV aneurysm with thrombus. This structure was previously described as a possible coronary aneurysm. The mitral valve is status post repair. An annular ring is noted. The mean transvalvular gradient is 3 mmHg. Trileaflet aortic valve with mild leaflet calcification. There is normal leaflet opening. There is mild aortic insufficiency. There is mild to moderate tricuspid insufficiency. Further imaging through either cardiac CTA or cardiac MRI performed under protocol i.e. on the [facility] (given the presence of a pacemaker with epicardial leads) should be considered for further clarification of the echocardiographic findings. 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, previous stroke, MSSA sepsis in the past, recurrent pleural effusion, hypertension, diabetes, chronic kidney disease , severe ischemic cardiomyopathy with EF of 30%, previous intracranial hemorrhage while on triple therapy now has * Chronic shortness of breath related to chronic congestive heart failure with systolic dysfunction * Significant pleural effusion with previous tap consistent with transudative fluid * Previous history of MSSA sepsis no clear evidence suggestive of infection * Low ejection fraction * Chronic coronary artery disease * Chronic hyponatremia * Severe peripheral vascular disease, mitral valve repair, chronic anemia which is stable * No venous thromboembolism * Worsening ischemic cardiomyopathy * Large echo lucent structure around the apex (pseudoaneurysm of coronary artery vs rv aneurysm cardio following Recommendation Continue diuresis per cardiology Hold Plavix and tap the effusion in few days Pt would need out pt follow up with me next week for eval for thora will follow
[2017-10-17 14:43] VITALS: BP 112/68
[2017-10-17] MEDS ORDERED: JANUVIA50 M1 PO (15:20)
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
[2017-10-17] MEDS ORDERED: ALDACTONE25 MG PO (16:21)
[2017-10-17 22:09] VITALS: BP 104/70
[2017-10-18 06:58] VITALS: BP 126/78
--- NOTE | 2017-10-18 07:07 | PN- Housestaff ---
See Addendum Subjective Follow-up For: ACUTE ON CHRONIC CHF EXACERBATION Tele-Events Since Last Visit: OVRNIGHT SINUS PACING AT RATE OF 62-72 Subjective: Patient seen resting comfortably in the bed. Currently reports a headache, but no other complaints. Overnight, no acute events. He has been ambulating up around the room and on the floor, without shortness of breath, nausea or vomiting. The patient reports that he feels much improved, although he still feels tired and lowenergy at baseline. The patient's chest x-ray results were explained to him, and the need to follow-up as an outpatient with cardiology, pulmonology and endocrinology was stressed. Review of Systems Constitutional: Reports: see HPI. Denies: chills, diaphoresis, fever. Cardiovascular: Denies: chest pain, palpitations, syncope. Respiratory: Denies: cough, short of breath, wheezing. Gastrointestinal: Denies: abdominal pain, nausea, vomiting. Neurological/Psychological: Reports: headache. Objective Last 24 Hrs of Vital Signs/I&O Vital Signs Date Time Temp Pulse Resp B/P B/P Pulse O2 O2 Flow FiO2 Mean Ox Delivery Rate 10/18 0658 99.1 73 20 126/78 96 Room Air 10/17 2209 99.0 60 20 104/70 97 / 1600 Room Air 10/17 1443 98.0 62 20 112/68 96 Room Air 10/17 0800 71 118/64 Intake & Output 10/18 0800 10/18 0000 10/17 1600 Intake Total 200 540 600 Output Total 1000 350 800 Balance -800 190 -200 Intake, Oral 200 540 600 Output, Urine 1000 350 800 Patient 84.907 kg Weight Weight Bed scale Measurement Method Physical Exam General Appearance: Alert, Oriented X3, Cooperative, No Acute Distress HEENT: Atraumatic, PERRLA, EOMI, Mucous Membr. moist/pink Neck: Supple, No JVD, No thryomegaly, +2 Carotid Pulse wo Bruit Cardiovascular: Regular Rate, Normal S1, Normal S2, No Murmurs Lungs: Clear to Auscultation Abdomen: Soft, No Tenderness Neurological: Normal Gait, Normal Speech, DIMINISHED SENSATION IN BILATERAL UPPER & LOWER EXTREMITIES Extremities: No Cyanosis, BILATERAL EDEMA +1 OF LOWER EXTREMETIES Current Medications: Current Medications Sig/Zee Start time Last Medication Dose Route Stop Time Status Admin Acetaminophen 650 MG .STK-MED ONE 10/17 2111 DC PO 10/17 211 Acetaminophen 650 MG .STK-MED ONE 10/17 1402 DC PO 10/17 1403 Acetaminophen 650 MG Q6-PRN PRN 10/16 0845 AC 10/17 PO 2111 Aspirin Buffered 81 MG QAM 10/16 09 AC 10/17 PO 0800 Atorvastatin Calcium 80 MG QPM 10/16 2100 AC 10/17 PO 210 Desvenlafaxine 25 MG DAILY 10/17 899 AC 10/17 Succinate PO 08 Diphenhydramine HCl 1 DAVID Q6P PRN 10/17 0615 AC 10/17 TOP 210 Docusate Sodium 100 MG DAILY NEEDED PRN 10/17 06 AC 10/16 PO 2057 Fenofibrate 145 MG DAILY 10/16 899 AC 10/17 PO 08 Furosemide 40 MG 7:30 AM, & 4:30 PM 10/16 1630 AC 10/17 IV 1625 Heparin Sodium 5,000 UNIT Q8 10/16 06 AC 10/18 (Porcine) SC 0543 Melatonin 5 MG AT BEDTIME 10/17 2100 AC 10/17 PO 2104 Metoprolol Succinate 75 MG DAILY 10/16 09 AC 10/17 PO 0800 Oxycodone HCl 30 MG Q4-PRN PRN 10/16 0130 AC 10/17 PO 210 Patient Medication 1 ED ONE ONE 10/17 1615 AR Teaching ED 10/17 1616 Sacubitril/Valsartan 1 TAB BID 10/16 1145 AC 10/17 PO 210 Spironolactone 25 MG DAILY 10/17 1245 AC 10/17 PO 1356 Last 24 Hrs of Lab/Adalberto Results Last 24 Hrs of Labs/Mics: Laboratory Tests 10/18/17 0620: Sodium Pending, Potassium Pending, Chloride Pending, Carbon Dioxide Pending, Anion Gap Pending, BUN Pending, Creatinine Pending, BUN/Creatinine Ratio Pending , CBC w Diff Pending, WBC Pending, RBC Pending, Hgb Pending, Hct Pending, MCV Pending, MCH Pending, MCHC Pending, RDW Pending, Plt Count Pending, MPV Pending 10/17/17 1850: Urine Osmolality 309, Ur Random Creatinine 33.7, U Random Total Protein 14 H, Ur Random Sodium 78, Ur Random Potassium 22.1, Protein/Creatinin Ratio 0.4 H, Fraction Sodium Excret 1.9 H Assessment/Plan Assessment: Patient is a 62-year-old male with a history of hypertension, hyperlipidemia, diabetes status post CABG one year ago presenting with lethargy, shortness of breath, vomiting and headache. Patient being treated for acute on chronic exacerbation of CHF 1. Acute CHF exacerbation mg Lasix 2. Dyspnea on exertion oxygen 3. Hyponatremia 4. Hypertension 5. Hyperlipidemia 6. Diabetes mellitus with peripheral neuropathy tolerate gabapentin Problem List: 1. Pleural effusion 2. Diabetes 3. Hyponatremia 4. Acute on chronic systolic CHF (congestive heart failure) 5. Dyspnea 6. Anemia Pain Ratin Pain Location: HEADACHE Pain Goal: Pain 4 or less Pain Plan: TYLENOL Tomorrow's Labs & Rationales: BEP & CBC
--- NOTE | 2017-10-18 07:40 | PN- Endocrinology ---
Assessment/Plan Endoscopy Assessment: The patient feels improved. Further studies have been done. The patient's thyroid tests have now returned to the normal range. In addition his thyroid antibodies are negative. Thus the elevation of the TSH was secondary to a sick euthyroid state or acute illness. We measured the patient's testosterone. In this hospital testosterone of 253 is within the normal range. The lower limits for testosterone in this hospital was 71. Thus there is not evidence of testosterone deficiency. With regard to his diabetes his blood sugars have been in a good range. Plan: Suggest that if the patient is discharged he does not need to be on thyroid medication. With regard to his diabetes he should be discharged on Januvia 50 mg alone and stop the metformin. He needs to follow a diabetic diet and check his sugars twice a day. Subjective Subjective: Feels improved Review of Systems Constitutional: Denies: chills, fever. Cardiovascular: Denies: chest pain. Respiratory: Denies: short of breath. Gastrointestinal: Denies: abdominal pain, nausea. Genitourinary: Denies: dysuria. Skin: Reports: no symptoms. Objective Last 24 Hrs of Vital Signs/I&O Vital Signs Date Time Temp Pulse Resp B/P B/P Pulse O2 O2 Flow FiO2 Mean Ox Delivery Rate 10/18 0558 99.1 73 20 126/78 96 Room Air 10/179 99.0 60 20 104/70 97 / 1600 Room Air 10/17 1443 98.0 62 20 112/68 96 Room Air 10/17 0800 71 118/64 Intake & Output 10/18 0800 10/18 0000 10/17 1600 Intake Total 200 540 600 Output Total 1000 350 800 Balance -800 190 -200 Intake, Oral 200 540 600 Output, Urine 1000 350 800 Patient 187 lb Weight Weight Bed scale Measurement Method Vital Signs Date Time Temp Pulse Resp B/P B/P Pulse O2 O2 Flow FiO2 Mean Ox Delivery Rate 10/18 0558 99.1 73 20 126/78 96 Room Air 10/17 2209 99.0 60 20 104/70 97 /12 1600 Room Air 10/17 1443 98.0 62 20 112/68 96 Room Air / 0800 71 118/64 Intake & Output 10/18 0800 / 0000 10/17 1600 Intake Total 200 540 600 Output Total 1000 350 800 Balance -800 190 -200 Intake, Oral 200 540 600 Output, Urine 1000 350 800 Patient 187 lb Weight Weight Bed scale Measurement Method Physical Exam General Appearance: alert, awake, comfortable Neck: normal inspection Respiratory: normal breath sounds Cardiovascular: regular rate/rhythm Abdomen: normal bowel sounds Extremities: normal inspection Current Medications: Current Medications Sig/Zee Start time Last Medication Dose Route Stop Time Status Admin Acetaminophen 650 MG .STK-MED ONE 10/17 2111 DC PO 10/17 211 Acetaminophen 650 MG .STK-MED ONE 10/17 1402 DC PO 10/17 1403 Acetaminophen 650 MG Q6-PRN PRN 10/16 0845 AC 10/17 PO 211 Aspirin Buffered 81 MG QAM 10/16 0900 AC 10/17 PO 0800 Atorvastatin Calcium 80 MG QPM 10/16 2100 AC 10/17 PO 210 Desvenlafaxine 25 MG DAILY 10/17 09 AC 10/17 Succinate PO 08 Diphenhydramine HCl 1 DAVID Q6P PRN 10/17 0615 AC 10/17 TOP 210 Docusate Sodium 100 MG DAILY NEEDED PRN 10/17 06 AC 10/16 PO 205 Fenofibrate 145 MG DAILY 10/16 09 AC 10/17 PO 0800 Furosemide 40 MG 7:30 AM, & 4:30 PM 10/16 1630 AC 10/17 IV 1625 Heparin Sodium 5,000 UNIT Q8 10/16 06 AC 10/18 (Porcine) SC 0543 Melatonin 5 MG AT BEDTIME 10/17 2100 AC 10/17 PO 210 Metoprolol Succinate 75 MG DAILY 10/16 0900 AC 10/17 PO 0800 Oxycodone HCl 30 MG Q4-PRN PRN 10/16 0130 AC 10/17 PO 2105 Patient Medication 1 ED ONE ONE 10/17 1615 [facility] ED 10/17 1616 Sacubitril/Valsartan 1 TAB BID 10/16 1145 AC 10/17 PO 2106 Spironolactone 25 MG DAILY 10/17 1245 AC 10/17 PO 1356 Results Pertinent Lab/Adalberto Results: Laboratory Tests 10/18 10/17 10/17 0620 1850 0625 Chemistry Sodium Pending Potassium Pending Chloride Pending Carbon Dioxide Pending Anion Gap Pending BUN Pending Creatinine Pending BUN/Creatinine Ratio Pending Uric Acid Cancelled Hematology CBC w Diff Pending WBC Pending RBC Pending Hgb Pending Hct Pending MCV Pending MCH Pending MCHC Pending RDW Pending Plt Count Pending MPV Pending Serology Lyme Ab (Western Blot) Pending Lyme IgG 18 kDa Band Pending Lyme IgG 23 kDa Band Pending Lyme IgG 28 kDa Band Pending Lyme IgG 30 kDa Band Pending Lyme IgG 39 kDa Band Pending Lyme IgG 41 kDa Band Pending Lyme IgG 45 kDa Band Pending Lyme IgG 58 kDa Band Pending Lyme IgG 66 kDa Band Pending Lyme IgG 93 kDa Band Pending Lyme IgM (Western Blot) Pending Lyme IgM 23 kDa Band Pending Lyme IgM 39 kDa Band Pending Lyme IgM 41 kDa Band Pending Urines Urine Osmolality (300 - 1000 MOSM/KG) 309 Ur Random Creatinine (mg/dL) 33.7 U Random Total Protein (0 - 12 mg/dL) 14 H Ur Random Sodium (30 - 90 mmol/L) 78 Ur Random Potassium (mmol/L) 22.1 Protein/Creatinin Ratio (< 0.2) 0.4 H Fraction Sodium Excret (<1% %) 1.9 H 10/17 10/16 0625 1050 Chemistry Sodium (137 - 145 mmol/L) 132 L Potassium (3.5 - 5.1 mmol/L) 4.8 Chloride (98 - 107 mmol/L) 90 L Carbon Dioxide (22 - 30 mmol/L) 31 H Anion Gap (5 - 16) 10 BUN (9 - 20 mg/dL) 28 H Creatinine (0.7 - 1.2 mg/dL) 1.1 Estimated GFR (>60 ml/min) > 60 BUN/Creatinine Ratio (7 - 25 %) 25.5 H Glucose (65 - 99 mg/dL) 102 H Uric Acid (3.5 - 8.5 mg/dL) 3.5 Troponin I (<0.11 ng/ml) 0.01 TSH (0.270 - 4.200 uIU/mL) 3.870 Thyroxine (T4) (4.5 - 10.9 ug/dL) 8.8 Total Testosterone (71.8 - 623 ng/dL) 242.0 Hematology CBC w Diff NO MAN DIFF REQ WBC (4.8 - 10.8 /CUMM) 4.5 L RBC (4.70 - 6.10 /CUMM) 3.20 L Hgb (14.0 - 18.0 G/DL) 9.8 L Hct (42 - 52 %) 28.5 L MCV (80.0 - 94.0 FL) 89.2 MCH (27.0 - 31.0 PG) 30.5 MCHC (33.0 - 37.0 G/DL) 34.3 RDW (11.5 - 14.5 %) 18.5 H Plt Count (130 - 400 /CUMM) 276 MPV (7.4 - 10.4 FL) 9.5 Gran % (42.2 - 75.2 %) 75.8 H Lymphocytes % (20.5 - 51.1 %) 13.1 L Monocytes % (1.7 - 9.3 %) 8.0 Eosinophils % (0 - 5 %) 2.7 Basophils % (0.0 - 2.0 %) 0.4 Absolute Granulocytes (1.4 - 6.5 /CUMM) 3.4 Absolute Lymphocytes (1.2 - 3.4 /CUMM) 0.6 L Absolute Monocytes (0.10 - 0.60 /CUMM) 0.4 Absolute Eosinophils (0.0 - 0.7 /CUMM) 0.1 Absolute Basophils (0.0 - 0.2 /CUMM) 0 Immunology Thyroglobulin Antibody (< 61 U/mL) < 15 Thyroid Peroxidase Ab (< 61 U/mL) 29 Serology Lyme Disease Antibody (RATIO) 5.65 *H
[2017-10-18 07:47] LABS: ABSOLUTE BASOPHIL COUNT 0 /CUMM (0.0-0.2); ABSOLUTE EOSINOPHIL COUNT 0.1 /CUMM (0.0-0.7); ABSOLUTE LYMPH COUNT 0.7 /CUMM (1.2-3.4); ABSOLUTE MONOCYTE COUNT 0.4 /CUMM (0.10-0.60); BASOPHIL % 0.3 % (0.0-2.0); EOSINOPHIL % 2.4 % (0-5); GRANULOCYTE % 76.8 % (42.2-75.2); HEMATOCRIT 30.7 % (42-52); MEAN CORPUSCULAR HGB 30.2 PG (27.0-31.0); MEAN CORPUSCULAR HGB CONC 33.5 G/DL (33.0-37.0); MEAN CORPUSCULAR VOLUME 90.2 FL (80.0-94.0); MEAN PLATELET VOLUME 9.2 FL (7.4-10.4); PLATELET COUNT 287 /CUMM (130-400); RBC DISTRIBUTION WIDTH 19.1 % (11.5-14.5); WHITE BLOOD CELL COUNT 5.3 /CUMM (4.8-10.8)
[2017-10-18 10:08] VITALS: BP 110/64
[2017-10-18] MEDS ORDERED: ALDACTONE25 MG PO (11:13)
[2017-10-18] MEDS ORDERED: JANUVIA50 M1 PO (11:13)
--- NOTE | 2017-10-18 11:16 | PN- Cardiology ---
Subjective Subjective: The patient is awake, alert, feels overall improved The events of the last 24 hours as well as telemetry were reviewed. Review of Systems: The review of systems is negative for chest pains, palpitations nor lightheadedness. The remainder of the 14 point review of systems is noncontributory with the exception of above. Objective Vital Signs and I&Os Vital Signs Date Time Temp Pulse Resp B/P B/P Pulse O2 O2 Flow FiO2 Mean Ox Delivery Rate 10/18 1008 74 110/64 10/18 0658 99.1 73 20 126/78 96 Room Air 10/17 2209 99.0 60 20 104/70 97 10/17 1600 Room Air 10/17 1443 98.0 62 20 112/68 96 Room Air Intake & Output 10/18 1600 10/18 0800 10/18 0000 10/17 1600 10/17 0800 10/17 0000 Intake Total 200 540 600 100 50 Output Total 1000 800 507 9015 1000 Balance -800 190 -200 -900 -950 Intake, Oral 200 540 600 100 50 Output, Urine 1000 228 828 3572 1000 Patient 187 lb 191 lb Weight Weight Bed scale Measurement Method Physical Exam: General: Nontoxic, no apparent distress. HEENT: Sclera and conjunctiva within normal limits, without xanthelasmas. Neck: Carotids 2+ without bruits. Respiratory: Scattered rhonchi, air movement is good, without accessory respiratory muscle use. Heart: Regular rate and rhythm, without murmurs, without JVD. Abdomen: Soft, nontender, no masses, normoactive bowel sounds. Extremities: Without clubbing, cyanosis, without edema. Neuro: Nonfocal exam, strength, 5 out of 5 Skin: Within normal limits without lesions. Psych: Mood and affect: Normal Current Medications: Current Medications Sig/Zee Start time Last Medication Dose Route Stop Time Status Admin Acetaminophen 650 MG .STK-MED ONE 10/17 2111 DC PO 10/17 211 Acetaminophen 650 MG .STK-MED ONE 10/17 1402 DC PO 10/17 1403 Acetaminophen 650 MG Q6-PRN PRN 10/16 0845 AC 10/18 PO 1008 Aspirin Buffered 81 MG QAM 10/16 09 AC 10/18 PO 1009 Atorvastatin Calcium 80 MG QPM 10/16 2100 AC 10/17 PO 2106 Desvenlafaxine 25 MG DAILY 10/17 899 AC 10/18 Succinate PO 1010 Diphenhydramine HCl 1 DAVID Q6P PRN 10/17 0615 10/17 TOP 2106 Docusate Sodium 100 MG DAILY NEEDED PRN 10/17 06 AC 10/16 PO 2058 Fenofibrate 145 MG DAILY 10/16 0900 AC 10/18 PO 1009 Furosemide 40 MG 7:30 AM, & 4:30 PM 10/18 0815 AC 10/18 PO 1009 Furosemide 40 MG 7:30 AM, & 4:30 PM 10/16 1630 DC 10/17 IV 1625 Heparin Sodium 5,000 UNIT Q8 10/16 06 AC 10/18 (Porcine) SC 0543 Melatonin 5 MG AT BEDTIME 10/17 2100 AC 10/17 PO 2105 Metoprolol Succinate 75 MG DAILY 10/16 09 AC 10/18 PO 1008 Oxycodone HCl 30 MG Q4-PRN PRN 10/16 0130 AC 10/18 PO 1008 Patient Medication 1 ED ONE ONE 10/17 1615 DC Teaching ED 10/17 1616 Sacubitril/Valsartan 1 TAB BID 10/16 1145 AC 10/18 PO 1009 Spironolactone 25 MG DAILY 10/17 1245 AC 10/18 PO 1009 Results Last 48 Hrs of Labs/Mics: Laboratory Tests 10/18/17 0620: Anion Gap 11, Estimated GFR > 60, BUN/Creatinine Ratio 22.0, CBC w Diff NO MAN DIFF REQ, RBC 3.40 L, MCV 90.2, MCH 30.2, MCHC 33.5, RDW 19.1 H, MPV 9.2, Gran % 76.8 H, Lymphocytes % 12.4 L, Monocytes % 8.1, Eosinophils % 2.4, Basophils % 0.3, Absolute Granulocytes 4.0, Absolute Lymphocytes 0.7 L, Absolute Monocytes 0.4, Absolute Eosinophils 0.1, Absolute Basophils 0 10/17/17 1850: Urine Osmolality 309, Ur Random Creatinine 33.7, U Random Total Protein 14 H, Ur Random Sodium 78, Ur Random Potassium 22.1, Protein/Creatinin Ratio 0.4 H, Fraction Sodium Excret 1.9 H 10/17/17 0625: Uric Acid Cancelled, Lyme Ab (Western Blot) Pending, Lyme IgG 18 kDa Band Pending, Lyme IgG 23 kDa Band Pending, Lyme IgG 28 kDa Band Pending, Lyme IgG 30 kDa Band Pending, Lyme IgG 39 kDa Band Pending, Lyme IgG 41 kDa Band Pending, Lyme IgG 45 kDa Band Pending, Lyme IgG 58 kDa Band Pending, Lyme IgG 66 kDa Band Pending, Lyme IgG 93 kDa Band Pending, Lyme IgM (Western Blot) Pending, Lyme IgM 23 kDa Band Pending, Lyme IgM 39 kDa Band Pending, Lyme IgM 41 kDa Band Pending 10/17/17 0625: Anion Gap 10, Estimated GFR > 60, BUN/Creatinine Ratio 25.5 H, Glucose 102 H, Uric Acid 3.5, TSH 3.870, Thyroxine (T4) 8.8, Total Testosterone 242.0, CBC w Diff NO MAN DIFF REQ, RBC 3.20 L, MCV 89.2, MCH 30.5, MCHC 34.3, RDW 18.5 H, MPV 9.5, Gran % 75.8 H, Lymphocytes % 13.1 L, Monocytes % 8.0, Eosinophils % 2.7, Basophils % 0.4, Absolute Granulocytes 3.4, Absolute Lymphocytes 0.6 L, Absolute Monocytes 0.4, Absolute Eosinophils 0.1, Absolute Basophils 0, Thyroglobulin Antibody < 15, Thyroid Peroxidase Ab 29, Lyme Disease Antibody 5.65 *H Assessment/Plan Assessment/Plan 62-year-old gentleman with a past medical history of coronary artery disease ( status post multiple stenting, most recently in 2016, as well as bypass surgery in 2010: BELL to LAD, SVG to OM 1, SVG to PDA), 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 He presents to our hospital with increasing dyspnea, progressive over the past several months as well as nausea with emesis. Dyspnea/acute on chronic congestive heart failure secondary to systolic dysfunction: The patient presents with dyspnea, and has known chronic congestive heart failure secondary to systolic dysfunction. His presentation is consistent with acute on chronic congestive heart failure secondary to systolic dysfunction. His course is overall complicated by acute on chronic kidney injury (creatinine and early October was 1.1, 1.7 on presentation currently), as well as hyponatremia. His dyspnea is likely contributed by his pleural effusions; however, these are likely caused by chronic congestive heart failure. The patient was diuresed approximately 3 L since admission and is now improved. Consider discharge to home today with further outpatient follow-up including workup for potential ventricular aneurysm. Pleural effusions: The patient's pleural effusions are most likely secondary to his congestive heart failure. At this time, we will attempt further fluid management with diuretics and fluid restriction; however, if symptoms do not improve, consideration for a therapeutic tap may be given. Coronary artery disease: Stable. The third troponin isoenzyme will be followed. Nausea: The patient presented with nausea which may be secondary to his underlying metabolic derangements. We will continue to treat symptomatically and follow once his electrolytes are balanced. Continue telemetry? No
--- NOTE | 2017-10-18 13:27 | Discharge Summary ---
Visit Information Visit Dates Admission Date: 10/15/17 Discharge Date: 10/18/17 Hospital Course Course Attending Physician: Ahsan Aguirre MD Primary Care Physician: Maykel Medina MD Hospital Course: Nelson Tolentino is a 62 YO male with a PMHx. of HTN, HLD, and CABG who presented with a chief complaint of "shortness of breath." Patient stated he has had progressive dyspnea and fatigue since being discharged from [facility] in August 2017. Patient stated over the past few days his dypsnea has worsened and has had associated orthopnea. Patient stated that after a while sitting down he has to sit up to catch his breath. Patient stated he followed up with his head of advertising Dr. Collazo after his most recent discharge at which point his doctor increased his Lasix dosage and added a Lasix IM injection administered on Saturday and of each week in his outpatient clinic. Patient also reported headaches and vomiting. Patient stated he is on 2.5 L of oxygen at home. Patient denies melena, fever, abdominal pain, sick contacts, diarrhea, and recent travel or immobilzation. Patient stated he does not smoke tobacco. Patient stated he drinks alcohol occasionally. Patient is a resident of [place]. Patient follows up with his head of advertising Dr. Collazo. Upon admission to the telemetry unit, the patient complained of lethargy and dyspnea, especially when ambulating. He also complained of a headache that had been bothering him for about a week. The patient's nausea and vomiting had resolved, and he was started on IV lasix for diuresis. The patient's D-dimer was found to be elevated in the ED, and he underwent V/Q scan which ruled out PE. The patient's symptoms began to improve, and his home dose of Entresto was resumed, as well as a new regimen of Spironolactone. The patient was seen by Cardiology, Pulmonology and Endocrinology. Cardiology monitored his improving symptoms and recommended further follow-up as an outpatient, as well as returning to the CHF clinic. Regarding his pleural effusion, Pulmonology recommended follow-up as an outpatient for possible thoracentesis. Endocrinology also recommended discontinuing metformin from the patient's diabetic regimen ( Janumet), and this was included on the patient's discharge instructions that the patient should switch to Januvia, without the metformin. The patient symptoms continued to improve and he was prepared for discharge with these instructions, recommendations and encouragement to continue following-up as an outpatient. Allergies: Coded Allergies: NO KNOWN ALLERGIES (01/21/12) Pertinent Lab Results: The patient was found to be anemic, with HgB of 9.9, 9.7, 9.8, and 10.3 ( chronologically from admission) each day of his hospital stay. The patient was also found to be hyponatremic, with Sodium of 132 and then 134 found on October 17 and October 18, respectively. An elevated urine random total protein was found, of 14. Urine protein/creatinine ratio was 0.4 And FeNa for the patient was 1.9 The patient initially was found to have an elevated TSH of 5.620 and low T3 of 0.83, but on repeat testing TSH improved to 3.870 and Thyroglobulin and Thyroid peroxidase antibodies were negative. The patient's Testosterone level was checked and found to be 242.0 Additionally the patient was positive for Lyme serology, with specific antibody titers pending. While admitted, the patient underwent a V/Q scan to rule-out PE. The results found no segmental perfusion defects, homogeneous distribution of activity bilaterally. No focal anatomic appearing perfusion defects present. The cardiac silhouette appeared moderately dilated. The patient also had an echocardiogram, which showed: Mildly dilated LV chamber size with normal wall thickness. The estimated LVEF is 20-25%. There is global hypokinesis as well as septal and anterior akinesis. A large echolucent structure is seen on apical views which was previously described as a possible coronary aneurysm. This may as well be consistent with a focal LV aneurysm. Normal right ventricular size. A large structure is seen on subcostal imaging with echo contrast which may be consistent with a focal RV aneurysm with thrombus. This structure was previously described as a possible coronary aneurysm. The mitral valve is status post repair. An annular ring is noted. The mean transvalvular gradient is 3 mmHg. Trileaflet aortic valve with mild leaflet calcification. There is normal leaflet opening. There is mild aortic insufficiency. There is mild to moderate tricuspid insufficiency. Recommended further imaging with Cardiac CTA or Cardiac MRI with protocol for pacer implants. Chest X-ray performed upon admission showed: Cardiomegaly with mild upper zone redistribution. Tiny pleural effusions. Chest X-ray performed 2 hours afterwards showed: Worsening right greater than left pleural effusions with adjacent airspace opacities in worsening mild to moderate interstitial pulmonary edema. Stable enlargement of the cardiac silhouette. Head CT upon admission demonstrated: No acute intracranial abnormality, with chronic left parietal encephalomalacia and remote lacunar infarcts. CT Abdomen & Pelvis found: - No acute findings in the abdomen or pelvis. - Scattered colonic diverticulosis without evidence of acute diverticulitis. - Small volume free fluid within the pelvic cul-de-sac is nonspecific. - Partially imaged moderate right and small left pleural effusions with adjacent atelectasis. - No hydronephrosis - Multiple calcifications throughout the spleen as the sequela of old granulomatous disease. - Extensive aortoiliac atherosclerotic calcification. Disposition Summary Disposition Principal Diagnosis: Acute exacerbation of CHF with reduced ejection fraction Additional Diagnosis: Pleural effusion Discharge Disposition: home or self care Discharge Instructions General Discharge Information Code Status: Full Code Patient's Diet: Regular diet Patient's Activity: Activity as tolerated Follow-Up Instructions/Appts: Patient instructed to follow up with his primary care doctor, head of advertising, expressive therapist, and sand slinger shortly after discharge. Medications at Discharge Discharge Medications: Stop taking the following medications: Sitagliptin Phos/Metformin HCl (Janumet 50-1,000 MG Tablet) 50 MG-1,000 MG TABLET ORAL TWICE DAILY Clopidogrel Bisulfate (Clopidogrel) 75 MG TABLET ORAL DAILY Continue taking these medications: Aspirin (Ecotrin*) 81 MG TABLET.DR 1 Tablet ORAL Every Morning Comments: Last Taken: 10/18/17 Time: 10:00 AM Allopurinol (Allopurinol) 300 MG TABLET 1 Tablet ORAL Every Morning Comments: NOT GIVEN Cyanocobalamin (Vitamin B-12) (Cyanocobalamin Injection) 1,000 MCG/ML VIAL 1 Milliliters INTRAMUSC ONCE A MONTH Qty = 2 Comments: NOT GIVEN Sennosides/Docusate Sodium (Senna Laxative Tablet) 8.6 MG-50 MG TABLET 1 Tablet ORAL Every night as needed for CONSTIPATION Comments: NOT GIVEN Atorvastatin Calcium (Lipitor) 80 MG TABLET 1 Tablet ORAL Every night Comments: Last Taken: 10/17/17 Time: 9:00 PM Famotidine (Famotidine) 20 MG TABLET 1 Tablet ORAL TWICE DAILY Comments: NOT GIVEN Fenofibrate,Micronized (Fenofibrate) 134 MG CAPSULE 1 Capsule ORAL DAILY Comments: Last Taken: 10/18/17 Time: 10:00 AM Ferrous Sulfate (Ferrous Sulfate) 325 MG (65 MG IRON) TABLET 1 Tablet ORAL TIDWM Comments: NOT GIVEN Sacubitril/Valsartan (Entresto 49 MG-51 MG Tablet) 49 MG-51 MG TABLET 1 Tablet ORAL TWICE DAILY Qty = 180 Comments: Last Taken: 10/18/17 Time: 10:00 AM Furosemide (Lasix) 40 MG TABLET 1 Tablet ORAL Every Morning Comments: Last Taken: 10/18/17 Time: 10:00 AM Furosemide (Lasix) 40 MG TABLET 1 Tablet ORAL Every night Comments: AM DOSE GIVEN Metoprolol Succinate (Metoprolol Succinate) 50 MG TAB.ER.24H 1.5 Tablet ORAL DAILY Comments: Last Taken: 10/18/17 Time: 10:00 AM Oxycodone HCl (Oxycontin) 40 MG TAB.ER.12H 1 Tablet ORAL Q12H Comments: NOT GIVEN Oxycodone HCl (Oxycodone HCl) 30 MG TABLET 1 Tablet ORAL EVERY 4 HOURS NEEDED as needed for PAIN Comments: Last Taken: 10/18/17 Time: 10:00 AM Desvenlafaxine Succinate (Pristiq ER) 25 MG TAB.ER.24H 1 Tablet ORAL DAILY Qty = 30 Comments: Last Taken: 10/18/17 Time: 10:00 AM Start taking the following new medications: Spironolactone (Aldactone) 25 MG TABLET 1 Tablet ORAL DAILY Qty = 30 No Refills Instructions: . Comments: Last Taken: 10/18/17 Time: 10:00 AM Sitagliptin Phosphate (Januvia) 50 MG TABLET 1 Tablet ORAL DAILY Qty = 30 No Refills Instructions: . Comments: NOT GIVEN Copies To: Ramone PERALES,Darrick Franklin; Adam PERALES,Maykel Zavala; Liz PERALES,Ciro Guardado; Rachael PERALES,Alex Mcfarlane Attending MD Review Statement Documenting Attending: Ahsan Aguirre MD Other Findings: Discharged in stable condition
--- NOTE | 2017-10-18 14:20 | PN- Pulmonary ---
Subjective HPI/Critical Care Issues: Sleeping and stable Objective Current Medications: Current Medications Sig/Zee Start time Last Medication Dose Route Stop Time Status Admin Acetaminophen 650 MG .STK-MED ONE 10/17 2110 DC PO 10/18 2111 Acetaminophen 650 MG Q6-PRN PRN 10/16 0845 DCD 10/18 PO 1008 Aspirin Buffered 81 MG QAM 10/16 0900 DCD 10/18 PO 1009 Atorvastatin Calcium 80 MG QPM 10/16 2100 DCD 10/17 PO 2106 Desvenlafaxine 25 MG DAILY 10/17 0900 DCD 10/18 Succinate PO 1010 Diphenhydramine HCl 1 DAVID Q6P PRN 10/17 0615 DCD 10/17 TOP 2106 Docusate Sodium 100 MG DAILY NEEDED PRN 10/17 0600 DCD 10/16 PO 2058 Fenofibrate 145 MG DAILY 10/16 0900 DCD 10/18 PO 1009 Furosemide 40 MG 7:30 AM, & 4:30 PM 10/18 0815 DCD 10/18 PO 1009 Furosemide 40 MG 7:30 AM, & 4:30 PM 10/16 1630 DC 10/17 IV 1625 Heparin Sodium 5,000 UNIT Q8 10/16 0600 DCD 10/18 (Porcine) SC 0543 Melatonin 5 MG AT BEDTIME 10/17 2100 DCD 10/17 PO 2105 Metoprolol Succinate 75 MG DAILY 10/16 0900 DCD 10/18 PO 1008 Oxycodone HCl 30 MG Q4-PRN PRN 10/16 0130 DCD 10/18 PO 1008 Patient Medication 1 ED ONE ONE 10/17 1615 [facility] ED 10/17 1616 Sacubitril/Valsartan 1 TAB BID 10/16 1145 DCD 10/18 PO 1009 Spironolactone 25 MG DAILY 10/17 1245 DCD 10/18 PO 1009 Vital Signs & I&O Last 24 Hrs of Vitals and I&O: Vital Signs Date Time Temp Pulse Resp B/P B/P Pulse O2 O2 Flow FiO2 Mean Ox Delivery Rate 10/18 1008 74 110/64 10/18 0658 99.1 73 20 126/78 96 Room Air 10/17 2209 99.0 60 20 104/70 97 / 1600 Room Air 10/17 1443 98.0 62 20 112/68 96 Room Air Intake & Output 10/18 1600 10/18 0800 10/18 0000 Intake Total 200 540 Output Total 1000 350 Balance -800 190 Intake, Oral 200 540 Output, Urine 1000 350 Patient 187 lb Weight Weight Bed scale Measurement Method Laboratory Tests 10/18 10/17 10/17 0620 1850 0625 Chemistry Sodium (137 - 145 mmol/L) 134 L Potassium (3.5 - 5.1 mmol/L) 3.9 Chloride (98 - 107 mmol/L) 92 L Carbon Dioxide (22 - 30 mmol/L) 30 Anion Gap (5 - 16) 11 BUN (9 - 20 mg/dL) 22 H Creatinine (0.7 - 1.2 mg/dL) 1.0 Estimated GFR (>60 ml/min) > 60 BUN/Creatinine Ratio (7 - 25 %) 22.0 Uric Acid Cancelled Hematology CBC w Diff NO MAN DIFF REQ WBC (4.8 - 10.8 /CUMM) 5.3 RBC (4.70 - 6.10 /CUMM) 3.40 L Hgb (14.0 - 18.0 G/DL) 10.3 L Hct (42 - 52 %) 30.7 L MCV (80.0 - 94.0 FL) 90.2 MCH (27.0 - 31.0 PG) 30.2 MCHC (33.0 - 37.0 G/DL) 33.5 RDW (11.5 - 14.5 %) 19.1 H Plt Count (130 - 400 /CUMM) 287 MPV (7.4 - 10.4 FL) 9.2 Gran % (42.2 - 75.2 %) 76.8 H Lymphocytes % (20.5 - 51.1 %) 12.4 L Monocytes % (1.7 - 9.3 %) 8.1 Eosinophils % (0 - 5 %) 2.4 Basophils % (0.0 - 2.0 %) 0.3 Absolute Granulocytes (1.4 - 6.5 /CUMM) 4.0 Absolute Lymphocytes (1.2 - 3.4 /CUMM) 0.7 L Absolute Monocytes (0.10 - 0.60 /CUMM) 0.4 Absolute Eosinophils (0.0 - 0.7 /CUMM) 0.1 Absolute Basophils (0.0 - 0.2 /CUMM) 0 Serology Lyme Ab (Western Blot) Pending Lyme IgG 18 kDa Band Pending Lyme IgG 23 kDa Band Pending Lyme IgG 28 kDa Band Pending Lyme IgG 30 kDa Band Pending Lyme IgG 39 kDa Band Pending Lyme IgG 41 kDa Band Pending Lyme IgG 45 kDa Band Pending Lyme IgG 58 kDa Band Pending Lyme IgG 66 kDa Band Pending Lyme IgG 93 kDa Band Pending Lyme IgM (Western Blot) Pending Lyme IgM 23 kDa Band Pending Lyme IgM 39 kDa Band Pending Lyme IgM 41 kDa Band Pending Urines Urine Osmolality (300 - 1000 MOSM/KG) 309 Ur Random Creatinine (mg/dL) 33.7 U Random Total Protein (0 - 12 mg/dL) 14 H Ur Random Sodium (30 - 90 mmol/L) 78 Ur Random Potassium (mmol/L) 22.1 Protein/Creatinin Ratio (< 0.2) 0.4 H Fraction Sodium Excret (<1% %) 1.9 H /12 0625 Chemistry Sodium (137 - 145 mmol/L) 132 L Potassium (3.5 - 5.1 mmol/L) 4.8 Chloride (98 - 107 mmol/L) 90 L Carbon Dioxide (22 - 30 mmol/L) 31 H Anion Gap (5 - 16) 10 BUN (9 - 20 mg/dL) 28 H Creatinine (0.7 - 1.2 mg/dL) 1.1 Estimated GFR (>60 ml/min) > 60 BUN/Creatinine Ratio (7 - 25 %) 25.5 H Glucose (65 - 99 mg/dL) 102 H Uric Acid (3.5 - 8.5 mg/dL) 3.5 TSH (0.270 - 4.200 uIU/mL) 3.870 Thyroxine (T4) (4.5 - 10.9 ug/dL) 8.8 Total Testosterone (71.8 - 623 ng/dL) 242.0 Hematology CBC w Diff NO MAN DIFF REQ WBC (4.8 - 10.8 /CUMM) 4.5 L RBC (4.70 - 6.10 /CUMM) 3.20 L Hgb (14.0 - 18.0 G/DL) 9.8 L Hct (42 - 52 %) 28.5 L MCV (80.0 - 94.0 FL) 89.2 MCH (27.0 - 31.0 PG) 30.5 MCHC (33.0 - 37.0 G/DL) 34.3 RDW (11.5 - 14.5 %) 18.5 H Plt Count (130 - 400 /CUMM) 276 MPV (7.4 - 10.4 FL) 9.5 Gran % (42.2 - 75.2 %) 75.8 H Lymphocytes % (20.5 - 51.1 %) 13.1 L Monocytes % (1.7 - 9.3 %) 8.0 Eosinophils % (0 - 5 %) 2.7 Basophils % (0.0 - 2.0 %) 0.4 Absolute Granulocytes (1.4 - 6.5 /CUMM) 3.4 Absolute Lymphocytes (1.2 - 3.4 /CUMM) 0.6 L Absolute Monocytes (0.10 - 0.60 /CUMM) 0.4 Absolute Eosinophils (0.0 - 0.7 /CUMM) 0.1 Absolute Basophils (0.0 - 0.2 /CUMM) 0 Immunology Thyroglobulin Antibody (< 61 U/mL) < 15 Thyroid Peroxidase Ab (< 61 U/mL) 29 Serology Lyme Disease Antibody (RATIO) 5.65 *H Microbiology Date/Time Procedure - Status Source Growth 10/16 1840 Blood Culture - RES BLOOD 10/16 1820 Blood Culture - RES BLOOD 10/16 1620 Blood Culture - CAN BLOOD Cancelled: Cancelled via OE: Per MD Decision Impression/Plan Impression/Plan Impression/Plan: General: Nontoxic, no apparent distress. HEENT: Sclera and conjunctiva within normal limits, without xanthelasmas. Neck: Carotids 2+ without bruits. Respiratory: Scattered rhonchi and rales, air movement is decreased at bases, without accessory respiratory muscle use. Heart: Regular rate and rhythm, without murmurs, without JVD. Abdomen: Soft, nontender, no masses, normoactive bowel sounds. Extremities: Without clubbing, cyanosis, without edema. Neuro: Nonfocal exam, strength, 5 out of 5 Skin: Within normal limits without lesions. Psych: Mood and affect: Normal vq IMPRESSION: Very low probability of pulmonary embolism. DICTATED BY: Keyur Padilla MD DATE/TIME DICTATED:10/16/171432 ct abd IMPRESSION: - No acute findings in the abdomen or pelvis. - Scattered colonic diverticulosis without evidence of acute diverticulitis. - Small volume free fluid within the pelvic cul-de-sac is nonspecific. - Partially imaged moderate right and small left pleural effusions with adjacent atelectasis. - No hydronephrosis - Multiple calcifications throughout the spleen as the sequela of old granulomatous disease. - Extensive aortoiliac atherosclerotic calcification. DICTATED BY: Hemant Cohen MD DATE/TIME DICTATED:10/15/172022 ECHO CONCLUSIONS Mildly dilated LV chamber size with normal wall thickness. The estimated LVEF is 20-25%. There is global hypokinesis as well as septal and anterior akinesis. A large echolucent structure is seen on apical views which was previously described as a possible coronary aneurysm. This may as well be consistent with a focal LV aneurysm. Normal right ventricular size. A large structure is seen on subcostal imaging with echo contrast which may be consistent with a focal RV aneurysm with thrombus. This structure was previously described as a possible coronary aneurysm. The mitral valve is status post repair. An annular ring is noted. The mean transvalvular gradient is 3 mmHg. Trileaflet aortic valve with mild leaflet calcification. There is normal leaflet opening. There is mild aortic insufficiency. There is mild to moderate tricuspid insufficiency. Further imaging through either cardiac CTA or cardiac MRI performed under protocol i.e. on the [facility] (given the presence of a pacemaker with epicardial leads) should be considered for further clarification of the echocardiographic findings. 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, previous stroke, MSSA sepsis in the past, recurrent pleural effusion, hypertension, diabetes, chronic kidney disease , severe ischemic cardiomyopathy with EF of 30%, previous intracranial hemorrhage while on triple therapy now has * Chronic shortness of breath related to chronic congestive heart failure with systolic dysfunction, now s/p 3 litres diuresis * Significant pleural effusion with previous tap consistent with transudative fluid * Previous history of MSSA sepsis no clear evidence suggestive of infection * Low ejection fraction * Chronic coronary artery disease * Chronic hyponatremia * Severe peripheral vascular disease, mitral valve repair, chronic anemia which is stable * No venous thromboembolism * Worsening ischemic cardiomyopathy * Large echo lucent structure around the apex (pseudoaneurysm of coronary artery vs rv aneurysm cardio following Recommendation Continue diuresis per cardiology Pt would need out pt follow up with me next week for eval for thora will follow
[2017-10-21] MEDS ORDERED: AUGMENTIN 875-1 EACH PO (03:56)
[2017-10-21] MEDS ORDERED: NEOMYCIN-POLYMY10 M1 OT (03:56)
== END 2017-10-18 12:20 | DRG 292 ==
LOC: ERH 17:00 → ERHI 22:05 → 1NO 22:05 → ENRESERV 22:41 → 1NO 23:23 → ENPENDDIS 10-18 08:43 → 1NO 10-18 12:20
PROVIDERS: Internal Medicine Endocrinology, Diabetes & Metabolism; Physician Assistant Medical; Student in an Organized Health Care Education/Training Program
DX: I11.0 Hypertensive heart disease with heart failure (principal); N17.9 Acute kidney failure, unspecified; E87.1 Hypo-osmolality and hyponatremia; J90 Pleural effusion, not elsewhere classified; I50.23 Acute on chronic systolic (congestive) heart failure; E78.5 Hyperlipidemia, unspecified; Z95.1 Presence of aortocoronary bypass graft; Z99.81 Dependence on supplemental oxygen; Z98.61 Coronary angioplasty status; M10.9 Gout, unspecified; Z95.0 Presence of cardiac pacemaker; D63.8 Anemia in other chronic diseases classified elsewhere; Z79.84 Long term (current) use of oral hypoglycemic drugs; E11.42 Type 2 diabetes mellitus with diabetic polyneuropathy; E11.51 Type 2 diabetes mellitus with diabetic peripheral angiopathy without gangrene
CPT/HCPCS: 1NP; 6020; 84133; 84300; 86618; 36415; 36592; 71045; 71046; 74176; 78582; 82436; 82570; 84403; 86376; 86800; 87040; 93005; 93010; 93306; 96374; A9540; A9558; G0378; J0131; J1644; J1940